=== PATIENT | male | born 1970 | race African-American/Black ===

== ENCOUNTER 2018-07-08 11:09 | Inpatient (IN) | payer OTHER ==
[2018-07-08 13:19] VITALS: BMI 25.8
--- NOTE | 2018-07-08 17:14 | HP ---
CIWA Score - CIWA Score Nausea/Vomitin-Mild Nausea/No Vomiting Muscle Tremors: 2 Anxiety: 3 Agitation: 3 Paroxysmal Sweats: 2 Orientation: 0-Oriented Tacttile Disturbances: 0-None Auditory Disturbances: 0-None Visual Disturbances: 0-None Headache: 3-Moderate CIWA-Ar Total Score: 14 Admission ROS S - HPI Chief Complaint: alcohol withdrawal symptoms Allergies/Adverse Reactions: Allergies Allergy/AdvReac Type Severity Reaction Status Date / Time No Known Allergies Allergy Verified 07/08/18 13:27 History of Present Illness: 47 yo male with history of alcohol, and crack cocaine dependence is here seeking detox. Last detox two months ago at [facility]. Denies any psychiatric problems. Denies suicidal / homicidal ideation or hx of suicide attempt. Longest period of sobriety eight months, during 2009. Exam Limitations: No Limitations - Ebola screening Have you been sick,other than usual withdrawal symptoms: No - Review of Systems Constitutional: Changes in sleep, Weakness EENT: reports: No Symptoms Reported Respiratory: reports: No Symptoms reported Cardiac: reports: No Symptoms Reported GI: reports: Diarrhea, Nausea, Poor Fluid Intake, Indigestion : reports: No Symptoms Reported Musculoskeletal: reports: No Symptoms Reported Integumentary: reports: No Symptoms Reported Neuro: reports: No Symptoms reported Endocrine: reports: Increased Thirst Hematology: reports: No Symptoms Reported Psychiatric: reports: Orientated x3, Depressed Other Systems: Reviewed and Negative Patient History - Patient Medical History Hx Anemia: No Hx Asthma: No Hx Chronic Obstructive Pulmonary Disease (COPD): No Hx Cancer: No Hx Cardiac Disorders: No Hx Congestive Heart Failure: No Hx Hypertension: No Hx Hypercholesterolemia: No Hx Pacemaker: No HX Cerebrovascular Accident: No Hx Seizures: No Hx Dementia: No Hx Diabetes: No Hx Gastrointestinal Disorders: No Hx Liver Disease: No Hx Genitourinary Disorders: No Hx Sexually Transmitted Disorders: No Hx Renal Disease (ESRD): No Hx Thyroid Disease: No Hx Human Immunodeficiency Virus (HIV): No (NEGATIVE HX-07/18) Hx Hepatitis C: No Hx Depression: No Hx Suicide Attempt: No Hx Bipolar Disorder: No Hx Schizophrenia: No - Patient Surgical History Past Surgical History: No Hx Neurologic Surgery: No Hx Cataract Extraction: No Hx Cardiac Surgery: No Hx Lung Surgery: No Hx Breast Surgery: No Hx Breast Biopsy: No Hx Abdominal Surgery: No Hx Appendectomy: No Hx Cholecystectomy: No Hx Genitourinary Surgery: No Hx Section: No Hx Orthopedic Surgery: No Anesthesia Reaction: No - PPD History Previous Implant?: Yes Documented Results: Negative w/proof Implanted On Prior [facility] Admission?: Yes Date: 01/20/16 PPD to be Administered?: Yes - Smoking Cessation Smoking history: Former smoker Have you smoked in the past 12 months: Yes Aproximately how many cigarettes per day: 20 If you are a former smoker, when did you quit?: 2017 Cigars Per Day: 0 Hx Chewing Tobacco Use: No Initiated information on smoking cessation: No - Substance & Tx. History Hx Alcohol Use: Yes Hx Substance Use: Yes Substance Use Type: Alcohol, Cocaine Hx Substance Use Treatment: Yes (Last detox two months ago at [facility]) - Substances Abused Alcohol Route: Oral Frequency: Daily Amount used: 2-3 [place] Age of first use: 15 Date of Last Use: 07/07/18 Cocaine Route: Smoking Frequency: Daily Amount used: $40 Age of first use: 38 Date of Last Use: 07/07/18 Family Disease History - Family Disease History Family History: Denies Admission Physical Exam [facility] - Vital Signs Vital Signs: Vital Signs - 24 hr 07/08/18 07/08/18 13:14 13:16 Temperature 96.9 F L 98.4 F Pulse Rate 69 81 Respiratory 18 20 Rate Blood Pressure 138/82 131/84 - Physical General Appearance: Yes: Appropriately Dressed, Mild Distress, Thin, Sweating, Anxious HEENTM: Yes: EOMI, Hearing grossly Normal, Normal ENT Inspection, Normocephalic , Normal Voice, ELISEO, Pharynx Normal, Tm's normal Respiratory: Yes: Chest Non-Tender, Lungs Clear, Normal Breath Sounds, No Respiratory Distress, No Accessory Muscle Use Neck: Yes: Within Normal Limits Breast: Yes: Breast Exam Deferred Cardiology: Yes: Regular Rhythm, Regular Rate Abdominal: Yes: Normal Bowel Sounds, Non Tender, Flat, Soft Genitourinary: Yes: Within Normal Limits Back: Yes: Normal Inspection Musculoskeletal: Yes: full range of Motion, Gait Steady, Pelvis Stable Extremities: Yes: Normal Capillary Refill, Normal Inspection, Normal Range of Motion, Non-Tender 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, Fully Oriented, Alert, Motor Strength 5/5, Depressed Affect Integumentary: Yes: Normal Color, Warm, Diaphoresis Lymphatic: Yes: Within Normal Limits - Diagnostic (1) Alcohol dependence with uncomplicated withdrawal Current Visit: Yes Status: Acute (2) Cocaine dependence Current Visit: Yes Status: Acute Cleared for Admission [facility] - Detox or Rehab [facility] Level of Care: Medically Managed Detox Regimen/Protocol: Librium [facility] Breath Alcohol Content Breath Alcohol Content: 0 Urine Drug Screen - Results Drug Screen Negative: No Urine Drug Screen Results: NAKUL-Cocaine, BZO-Benzodiazepines
[2018-07-08] MEDS ORDERED: P-EPHED 60MG/TRIPROLIDI 2.5MG TABLET PO PRN (17:22)
[2018-07-08] MEDS ORDERED: MENTHOL/PHENOL 1 EACH UD MM PRN (17:22)
[2018-07-08] MEDS ORDERED: hydrOXYzine PAMOATE 50 MG CAPSULE (FP) PO PRN (17:22)
[2018-07-08] MEDS ORDERED: guaiFENesin/D-METHORPHAN HB 10 ML UNIT-DOSE CUPS PO PRN (17:22)
[2018-07-08] MEDS ORDERED: MAG HYDROX/AL HYDROX/SIMETH 30 ML UNIT-DOSE CUP PO PRN (17:22)
[2018-07-08] MEDS ORDERED: chlordiazePOXIDE HCL 25 MG CAPSULE PO PRN (17:22)
[2018-07-08] MEDS ORDERED: MAGNESIUM CITRATE 300 ML BOTTLE PO PRN (17:22)
[2018-07-08] MEDS ORDERED: MAGNESIUM HYDROX 2400MG/30ML ORAL SUSPENSION 30 ML CUP PO PRN (17:22)
[2018-07-08] MEDS ORDERED: ACETAMINOPHEN 325 MG TABLET (FP) PO PRN (17:22)
[2018-07-08] MEDS ORDERED: IBUPROFEN 400 MG TABLET (FP) PO PRN (17:22)
[2018-07-08] MEDS ORDERED: LOPERAMIDE HCL 2 MG CAPSULE PO PRN (17:22)
[2018-07-08] MEDS ORDERED: chlordiazePOXIDE HCL 25 MG CAPSULE PO ONE (17:45)
[2018-07-08] MEDS ORDERED: MELATONIN 5 MG TABLETS PO PRN (22:00)
[2018-07-08] MEDS ORDERED: THIAMINE HCL 100 MG TABLET (FP) PO SCH (22:00)
[2018-07-08] MEDS: chlordiazePOXIDE HCL 25 MG CAPSULE PO SCH (22:05)
[2018-07-09 00:02] LABS: URINE APPEARANCE CLEAR; URINE BILIRUBIN NEGATIVE (<2.0 mg/dL); URINE COLOR YELLOW; URINE GLUCOSE (UA) NEGATIVE (NEGATIVE); URINE KETONE NEGATIVE (NEGATIVE); URINE LEUK ESTERASE NEGATIVE (NEGATIVE); URINE NITRITE NEGATIVE (NEGATIVE); URINE PROTEIN NEGATIVE (NEGATIVE); URINE UROBILINOGEN NEGATIVE mg/dL (0.2-1.0)
[2018-07-09 00:20] LABS: EPI CELLS RARE /HPF (FEW); URINE HYALINE CAST 2 /lpf; URINE MUCUS MANY
[2018-07-09] MEDS: chlordiazePOXIDE HCL 25 MG CAPSULE PO SCH ×2 (06:42→10:51)
--- NOTE | 2018-07-09 09:59 | EKG ---
Test Reason : Blood Pressure : / mmHG Vent. Rate : 073 BPM Atrial Rate : 073 BPM P-R Int : 150 ms QRS Dur : 082 ms QT Int : 392 ms P-R-T Axes : 065 051 033 degrees QTc Int : 431 ms NORMAL SINUS RHYTHM NONSPECIFIC ST ABNORMALITY NO PREVIOUS ECGS AVAILABLE Confirmed by ANAID NUNEZ MD ([id number]) on 07/09/2018 9:58:46 AM Referred By: Confirmed By:ANAID NUNEZ MD
[2018-07-09] MEDS ORDERED: PRENATAL VITAMINS W/ FOLIC ACID TABLET (FP) PO SCH (10:00)
[2018-07-09 10:01] LABS: HEMATOCRIT 40.6 % (35.4-49); HEMOGLOBIN 13.7 GM/dL (11.7-16.9); MCH 31.8 pg (25.7-33.7); MCHC 33.7 g/dl (32.0-35.9); MEAN CELL VOLUME 94.3 fl (80-96); MEAN PLT VOLUME 10.4 fl (7.5-11.1); PLATELET COUNT 221 K/MM3 (134-434); RBC 4.31 M/mm3 (4.00-5.60); RDW 14.3 % (11.9-15.9); WHITE BLOOD COUNT 5.1 K/mm3 (4.0-10.0)
[2018-07-09 10:21] LABS: ALBUMIN 3.7 g/dl (3.4-5.0); ANION GAP 6 MMOL/L (8-16); BILIRUBIN,TOTAL 0.4 mg/dL (0.2-1.0); BLOOD UREA NITROGEN 21 mg/dL (7-18); CALCIUM 8.8 mg/dL (8.5-10.1); CHLORIDE 105 mmol/L (98-107); CO2 29 mmol/L (21-32); CREATININE 1.1 mg/dL (0.7-1.3); GLUCOSE,RANDOM 132 mg/dL (74-106); POTASSIUM 3.6 mmol/L (3.5-5.1); SGOT/AST 21 U/L (15-37); SGPT/ALT 22 U/L (12-78); SODIUM 140 mmol/L (136-145); TOT PROT 7.7 g/dl (6.4-8.2)
[2018-07-09 10:22] LABS: ALK PHOS 86 U/L (45-117)
[2018-07-09 13:54] VITALS: BP 122/76; PULSE 87; TEMP 96.4
--- NOTE | 2018-07-09 15:30 | DS ---
[facility] Detox Discharge Summary Admission Date: 07/08/18 Discharge Date: 07/09/18 - History Present History: Alcohol Dependence, Cocaine Dependence Additional Comments: PT DECLINED TO CONTINUE WITH DETOX FOR PERSONAL REASONS. ALERT O X 3. - Physical Exam Results Vital Signs: Vital Signs Temperature 96.4 F L 07/09/18 13:53 Pulse Rate 87 07/09/18 13:53 Respiratory Rate 18 07/09/18 13:53 Blood Pressure 122/76 07/09/18 13:53 O2 Sat by Pulse Oximetry (%) Pertinent Admission Physical Exam Findings: WITHDRAWAL SX - Treatment Hospital Course: Discharged Condition Good - Medication Discharge Medications: Ambulatory Orders NK [No Known Home Medication] 09/24/14 - AMA Did Patient Leave Against Medical Advice: Yes (AMA)
--- NOTE | 2018-07-09 16:23 | CONSULT ---
[facility] Psychiatric Consult - Data Date of interview: 07/09/18 Admission source: [facility] Identifying data: Patient refused psychiatric interview.
[2018-07-09] MEDS ORDERED: chlordiazePOXIDE HCL 25 MG CAPSULE PO SCH (23:00)
[2018-07-10] MEDS ORDERED: chlordiazePOXIDE 5 MG CAPSULE PO SCH (23:00)
[2018-07-11] MEDS ORDERED: chlordiazePOXIDE HCL 10 MG CAPSULE PO SCH (23:00)
== END 2018-07-09 15:00 | disposition left against medical advice (07) | DRG 770 ==
LOC: YASAS 11:09 → Y3N 15:35
PROC: HZ2ZZZZ Detoxification Services for Substance Abuse Treatment (ICD-10-PCS; principal; 2018-07-08)
DX: F10.230 Alcohol dependence with withdrawal, uncomplicated (principal); F14.20 Cocaine dependence, uncomplicated; F17.213 Nicotine dependence, cigarettes, with withdrawal
CPT/HCPCS: 36415; 80053; 81003; 81015; 85027; 86593; 93005; 93010

== ENCOUNTER 2018-08-15 12:10 | Inpatient (IN) | payer OTHER ==
[2018-08-15 12:12] VITALS: BMI 25.9
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
[2018-08-15] MEDS ORDERED: MAGNESIUM HYDROX 2400MG/30ML ORAL SUSPENSION 30 ML CUP PO PRN (14:51)
[2018-08-15] MEDS ORDERED: hydrOXYzine PAMOATE 25 MG CAPSULE (FP) PO PRN (14:51)
[2018-08-15] MEDS ORDERED: ACETAMINOPHEN 325 MG TABLET (FP) PO PRN (14:51)
[2018-08-15] MEDS ORDERED: MENTHOL/PHENOL 1 EACH UD MM PRN (14:51)
[2018-08-15] MEDS ORDERED: IBUPROFEN 400 MG TABLET (FP) PO PRN (14:51)
[2018-08-15] MEDS ORDERED: MAG HYDROX/AL HYDROX/SIMETH 30 ML UNIT-DOSE CUP PO PRN (14:51)
[2018-08-15] MEDS ORDERED: P-EPHED 60MG/TRIPROLIDI 2.5MG TABLET PO PRN (14:51)
[2018-08-15] MEDS ORDERED: LOPERAMIDE HCL 2 MG CAPSULE PO PRN (14:51)
[2018-08-15] MEDS ORDERED: chlordiazePOXIDE HCL 25 MG CAPSULE PO PRN (14:51)
[2018-08-15] MEDS ORDERED: guaiFENesin/D-METHORPHAN HB 10 ML UNIT-DOSE CUPS PO PRN (14:51)
[2018-08-15] MEDS ORDERED: MAGNESIUM CITRATE 300 ML BOTTLE PO PRN (14:51)
[2018-08-15] MEDS: chlordiazePOXIDE HCL 25 MG CAPSULE PO SCH ×2 (17:45→22:49)
[2018-08-15] MEDS ORDERED: MELATONIN 5 MG TABLETS PO PRN (22:00)
[2018-08-15] MEDS: THIAMINE HCL 100 MG TABLET (FP) PO SCH (22:48)
[2018-08-15] MEDS: BACITRACIN 0.9 GM PACKET TP SCH (22:48)
[2018-08-15 22:49] LABS: URINE APPEARANCE SLCLOUDY; URINE BILIRUBIN NEGATIVE (<2.0 mg/dL); URINE COLOR YELLOW; URINE GLUCOSE (UA) NEGATIVE (NEGATIVE); URINE KETONE NEGATIVE (NEGATIVE); URINE LEUK ESTERASE NEGATIVE (NEGATIVE); URINE NITRITE NEGATIVE (NEGATIVE); URINE PROTEIN NEGATIVE (NEGATIVE); URINE UROBILINOGEN NEGATIVE mg/dL (0.2-1.0)
[2018-08-15 22:58] LABS: CALCIUM OXALATE CRYSTALS MODERATE /hpf (NONE SEEN); EPI CELLS RARE /HPF (FEW); URINE MUCUS RARE
[2018-08-16] MEDS: chlordiazePOXIDE HCL 25 MG CAPSULE PO SCH ×4 (06:14→23:55)
[2018-08-16] MEDS ORDERED: PRENATAL VITAMINS W/ FOLIC ACID TABLET (FP) PO SCH (10:00)
[2018-08-16 10:20] LABS: HEMATOCRIT 39.1 % (35.4-49); HEMOGLOBIN 12.9 GM/dL (11.7-16.9); MCH 31.4 pg (25.7-33.7); MEAN PLT VOLUME 9.3 fl (7.5-11.1); PLATELET COUNT 218 K/MM3 (134-434); RBC 4.11 M/mm3 (4.00-5.60); RDW 14.1 % (11.9-15.9); WHITE BLOOD COUNT 3.6 K/mm3 (4.0-10.0)
[2018-08-16 10:45] LABS: ALBUMIN 2.9 g/dl (3.4-5.0); ALK PHOS 74 U/L (45-117); ANION GAP 7 MMOL/L (8-16); BILIRUBIN,TOTAL 0.4 mg/dL (0.2-1); BLOOD UREA NITROGEN 12 mg/dL (7-18); CALCIUM 8.9 mg/dL (8.5-10.1); CHLORIDE 109 mmol/L (98-107); CO2 28 mmol/L (21-32); CREATININE 0.9 mg/dL (0.55-1.3); GLUCOSE,RANDOM 91 mg/dL (74-106); POTASSIUM 3.9 mmol/L (3.5-5.1); SGOT/AST 21 U/L (15-37); SGPT/ALT 20 U/L (13-61); SODIUM 144 mmol/L (136-145); TOT PROT 6.2 g/dl (6.4-8.2)
[2018-08-16] MEDS: BACITRACIN 0.9 GM PACKET TP SCH ×2 (10:47→23:55)
--- NOTE | 2018-08-16 12:24 | PN ---
[facility] CIWA - CIWA Score Nausea/Vomitin Muscle Tremors: 4-Moderate,w/Arms Extend Anxiety: 4-Mod. Anxious/Guarded Agitation: 4-Moderately Restless Paroxysmal Sweats: 3 Orientation: 0-Oriented Tacttile Disturbances: 0-None Auditory Disturbances: 0-None Visual Disturbances: 0-None Headache: 0-None Present CIWA-Ar Total Score: 17 BHS Progress Note (SOAP) Subjective: Nausea, fatigue, sweating Objective: 08/16/18 12:21 Last Vital Signs Temp Pulse Resp BP Pulse Ox 97.4 F L 82 17 112/66 08/16/18 09:20 08/16/18 09:20 08/16/18 09:20 08/16/18 09:20 Laboratory Tests 08/15/18 08/16/18 08/16/18 21:00 07:00 07:00 WBC 3.6 L RBC 4.11 Hgb 12.9 Hct 39.1 MCV 95.0 MCH 31.4 MCHC 33.0 RDW 14.1 Plt Count 218 MPV 9.3 D Sodium 144 Potassium 3.9 Chloride 109 H Carbon Dioxide 28 Anion Gap 7 L BUN 12 Creatinine 0.9 Creat Clearance w eGFR > 60 Random Glucose 91 Calcium 8.9 Total Bilirubin 0.4 AST 21 ALT 20 Alkaline Phosphatase 74 Total Protein 6.2 L Albumin 2.9 L Urine Color Yellow Urine Appearance Slcloudy Urine pH 5.0 Ur Specific Stanton 1.031 Urine Protein Negative Urine Glucose (UA) Negative Urine Ketones Negative Urine Blood 1+ H Urine Nitrite Negative Urine Bilirubin Negative Urine Urobilinogen Negative Ur Leukocyte Esterase Negative Urine WBC (Auto) 3 Urine RBC (Auto) 5 Ur Epithelial Cells Rare Calcium Oxalate Crystal Moderate Urine Mucus Rare Labs reviewed: microscopic hematuria/abnormal UA Assessment: 08/16/18 12:22 Withdrawal sxs Noted with microscopic hematuria/abnormal UA Plan: Continue detox Microscopic hematuria/abnormal UA: encouraged PO water intake, repeat UA
[2018-08-16 17:50] VITALS: BP 127/81; PULSE 94; TEMP 97.9
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
[2018-08-16] MEDS: THIAMINE HCL 100 MG TABLET (FP) PO SCH (23:55)
[2018-08-17] MEDS: chlordiazePOXIDE HCL 25 MG CAPSULE PO SCH (06:42)
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
[2018-08-17] MEDS ORDERED: chlordiazePOXIDE 5 MG CAPSULE PO SCH (17:00)
[2018-08-18] MEDS ORDERED: chlordiazePOXIDE HCL 10 MG CAPSULE PO SCH (17:00)
== END 2018-08-16 22:40 | disposition short-term general hospital (02) | DRG 774 ==
LOC: YASAS 12:10 → Y3N 15:21
PROC: HZ2ZZZZ Detoxification Services for Substance Abuse Treatment (ICD-10-PCS; principal; 2018-08-15)
DX: F10.230 Alcohol dependence with withdrawal, uncomplicated (principal); F14.20 Cocaine dependence, uncomplicated; F17.213 Nicotine dependence, cigarettes, with withdrawal; F91.8 Other conduct disorders; F41.9 Anxiety disorder, unspecified; R82.90 Unspecified abnormal findings in urine; R31.29 Other microscopic hematuria; S00.83XA Contusion of other part of head, initial encounter; S01.511A Laceration without foreign body of lip, initial encounter; Y04.0XXA Assault by unarmed brawl or fight, initial encounter; W18.39XA Other fall on same level, initial encounter; Y93.89 Activity, other specified; Y92.239 Unspecified place in hospital as the place of occurrence of the external cause
CPT/HCPCS: 36415; 80053; 81003; 81015; 85027; 86593

== ENCOUNTER 2018-08-16 23:11 | Emergency (ER) | payer OTHER ==
[2018-08-16 23:18] VITALS: BP 137/83; PULSE 89; TEMP 98; BMI 25.8
[2018-08-17] MEDS ORDERED: KETOROLAC TROMETHAMINE 30 MG/1 ML VIAL IVPUSH ONE (03:49)
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
[2018-08-17] MEDS ORDERED: KETOROLAC TROMETHAMINE 15 MG/ML VIAL ONE (05:27)
[2018-08-17] MEDS ORDERED: RANITIDINE HCL 150 MG TABLET (FP) ONE (05:41)
[2018-08-17] MEDS ORDERED: ONDANSETRON *ODT* 4 MG TABLET ONE (05:42)
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
--- NOTE | 2018-08-17 07:27 | DS ---
S Detox Discharge Summary Discharge Date: 08/17/18 - History Additional Comments: Patie - Physical Exam Results Vital Signs: Vital Signs Temperature 98.0 F 08/16/18 23:16 Pulse Rate 89 08/16/18 23:16 Respiratory Rate 18 08/16/18 23:16 Blood Pressure 137/83 08/16/18 23:16 O2 Sat by Pulse Oximetry (%) 99 08/16/18 23:16 - Medication Discharge Medications: Ambulatory Orders NK [No Known Home Medication] 09/24/14
== END 2018-08-17 07:45 | disposition home or self-care (01) ==
LOC: JER 23:11
PROC: 3E0333Z Introduction of Anti-inflammatory into Peripheral Vein, Percutaneous Approach (ICD-10-PCS; principal; 2018-08-16)
DX: S09.93XA Unspecified injury of face, initial encounter (principal); S01.511A Laceration without foreign body of lip, initial encounter; R07.81 Pleurodynia; Y04.0XXA Assault by unarmed brawl or fight, initial encounter; Y93.89 Activity, other specified; Y92.238 Other place in hospital as the place of occurrence of the external cause; Y99.8 Other external cause status
CPT/HCPCS: 96374; 99282-25

== ENCOUNTER 2019-02-17 12:49 | Inpatient (IN) | payer OTHER ==
[2019-02-17 13:55] VITALS: BMI 25.8
--- NOTE | 2019-02-17 14:12 | HP ---
CIWA Score Nausea/Vomitin Muscle Tremors: 2 Anxiety: 2 Agitation: 2 Paroxysmal Sweats: 1-Minimal Palms Moist Orientation: 0-Oriented Tacttile Disturbances: 1-Very Mild Itch/Numbness Auditory Disturbances: 1-Very Mild Visual Disturbances: 0-None Headache: 2-Mild CIWA-Ar Total Score: 13 - Admission Criteria OASAS Guidelines: Admission for Medically Managed Detox: Requires at least one of the followin. CIWA greater than 12 2. Seizures within the past 24 hours 3. Delirium tremens within the past 24 hours 4. Hallucinations within the past 24 hours 5. Acute intervention needed for co occurring medical disorder 6. Acute intervention needed for co occurring psychiatric disorder 7. Severe withdrawal that cannot be handled at a lower level of care (continued vomiting, continued diarrhea, abnormal vital signs) requiring intravenous medication and/or fluids 8. Admission ROS BHS - HPI Chief Complaint: i need help to stop dronking alcohol and cocaine Allergies/Adverse Reactions: Allergies Allergy/AdvReac Type Severity Reaction Status Date / Time No Known Allergies Allergy Verified 02/17/19 13:51 History of Present Illness: this 48 years old male with alcohol and cocaine dependence,seeking detox, withdrawal symptom, multiple admissions in detox,last [facility] 08/15/18 to 08/16/18 not completed syncope alcohol related nicotine dependence 6 cigarette,do not want nicotine replacement weight loss longest period of sobriety 6 months plan for rehab after detox Exam Limitations: No Limitations - Ebola screening Have you traveled outside of the country in the last 21 days: No Have you had contact with anyone from an Ebola affected area: No Do you have a fever: No - Review of Systems Constitutional: Loss of Appetite, Malaise, Night Sweats, Changes in sleep, Unintentional Wgt. Loss EENT: reports: Tearing, Nose Congestion Respiratory: reports: No Symptoms reported Cardiac: reports: No Symptoms Reported GI: reports: Nausea, Vomiting, Abdominal cramping : reports: No Symptoms Reported Musculoskeletal: reports: Back Pain, Muscle Pain Integumentary: reports: Dryness Neuro: reports: Headache, Tremors Endocrine: reports: No Symptoms Reported Hematology: reports: No Symptoms Reported Psychiatric: reports: No Sypmtoms Reported, Judgement Intact, Mood/Affect Appropiate, Orientated x3 Other Systems: Reviewed and Negative Patient History - Patient Medical History Hx Anemia: No Hx Asthma: No Hx Chronic Obstructive Pulmonary Disease (COPD): No Hx Cancer: No Hx Cardiac Disorders: No Hx Congestive Heart Failure: No Hx Hypertension: No Hx Hypercholesterolemia: No Hx Pacemaker: No HX Cerebrovascular Accident: No Hx Seizures: No Hx Dementia: No Hx Diabetes: No Hx Gastrointestinal Disorders: No Hx Liver Disease: No Hx Genitourinary Disorders: No Hx Sexually Transmitted Disorders: No Hx Renal Disease (ESRD): No Hx Thyroid Disease: No Hx Human Immunodeficiency Virus (HIV): No (02/17 negative) Hx Hepatitis C: No Hx Depression: No Hx Suicide Attempt: No Hx Bipolar Disorder: No Hx Schizophrenia: No Other Medical History: no suicidal,no homicidal - Patient Surgical History Past Surgical History: No Hx Neurologic Surgery: No Hx Cataract Extraction: No Hx Cardiac Surgery: No Hx Lung Surgery: No Hx Breast Surgery: No Hx Breast Biopsy: No Hx Abdominal Surgery: No Hx Appendectomy: No Hx Cholecystectomy: No Hx Genitourinary Surgery: No Hx Section: No Hx Orthopedic Surgery: No Anesthesia Reaction: No - PPD History Previous Implant?: Yes Documented Results: Negative w/proof Implanted On Prior [facility] Admission?: Yes Date: 07/10/18 Results: 0 mm PPD to be Administered?: No - Smoking Cessation Smoking history: Current every day smoker Have you smoked in the past 12 months: Yes Aproximately how many cigarettes per day: 5 Cigars Per Day: 0 Hx Chewing Tobacco Use: No Initiated information on smoking cessation: Yes 'Breaking Loose' booklet given: 02/17/19 - Substance & Tx. History Hx Alcohol Use: Yes Hx Substance Use: No Substance Use Type: Alcohol, Cocaine Hx Substance Use Treatment: Yes ([facility] 08/15/18 to 08/16/18 not completed) - Substances abused Alcohol Substance route: Oral Frequency: Daily Amount used: 3 PT. VODKA, 6 beers ( 25 oz ) Age of first use: 15 Date of last use: 02/17/19 Cocaine Substance route: Smoking Frequency: Daily Amount used: 50$ Age of first use: 35 Date of last use: 02/17/19 Family Disease History - Family Disease History Family History: Denies Admission Physical Exam BHS - Vital Signs Vital Signs: Vital Signs - 24 hr 02/17/19 13:45 Temperature 98 F Pulse Rate 70 Respiratory 18 Rate Blood Pressure 135/90 - Physical General Appearance: Yes: Moderate Distress, Tremorous, Irritable, Sweating, Anxious HEENTM: Yes: Normal ENT Inspection, ELISEO, Pharynx Normal Respiratory: Yes: Lungs Clear, Normal Breath Sounds, No Respiratory Distress Neck: Yes: Within Normal Limits, Supple, Trachea in good position Breast: Yes: Within Normal Limits Cardiology: Yes: Within Normal Limits, Regular Rhythm, Regular Rate, S1, S2 Abdominal: Yes: Within Normal Limits, Normal Bowel Sounds, Non Tender, Flat, Soft Genitourinary: Yes: Within Normal Limits Back: Yes: Muscle Spasm Musculoskeletal: Yes: Back pain, Muscle Pain Extremities: Yes: Tremors 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, Fully Oriented, Alert, Motor Strength 5/5 Integumentary: Yes: Dry Lymphatic: Yes: Within Normal Limits - Diagnostic (1) Alcohol dependence with uncomplicated withdrawal Current Visit: No Status: Chronic (2) Nicotine dependence Current Visit: No Status: Acute Qualifiers: Nicotine product type: cigarettes Substance use status: in withdrawal Qualified Code(s): F17.213 - Nicotine dependence, cigarettes, with withdrawal (3) Syncope Current Visit: No Status: Acute (4) Cocaine dependence Current Visit: No Status: Chronic (5) Weight loss Current Visit: Yes Status: Acute Cleared for Admission S - Detox or Rehab S Level of Care: Medically Managed Detox Regimen/Protocol: Librium Inpatient Rehab Admission - Rehab Decision to Admit Inpatient rehab admission?: No
[2019-02-17] MEDS ORDERED: ACETAMINOPHEN 325 MG TABLET (FP) PO PRN ×2 (14:18)
[2019-02-17] MEDS ORDERED: MAGNESIUM HYDROX 2400MG/30ML ORAL SUSPENSION 30 ML CUP PO PRN (14:18)
[2019-02-17] MEDS ORDERED: MELATONIN 5 MG TABLETS PO PRN (14:18)
[2019-02-17] MEDS ORDERED: MAG HYDROX/AL HYDROX/SIMETH 30 ML UNIT-DOSE CUP PO PRN (14:18)
[2019-02-17] MEDS ORDERED: MAGNESIUM CITRATE 300 ML BOTTLE PO PRN (14:18)
[2019-02-17] MEDS ORDERED: hydrOXYzine PAMOATE 25 MG CAPSULE (FP) PO PRN (14:18)
[2019-02-17] MEDS ORDERED: MENTHOL/PHENOL 1 EACH UD MM PRN (14:18)
[2019-02-17] MEDS ORDERED: BISMUTH SUBSALICYLATE 262 MG/15 ML BTL PO PRN (14:18)
[2019-02-17] MEDS ORDERED: chlordiazePOXIDE HCL 25 MG CAPSULE PO PRN (14:18)
[2019-02-17] MEDS ORDERED: METHOCARBAMOL 500 MG TABLET PO PRN (14:18)
[2019-02-17] MEDS ORDERED: IBUPROFEN 400 MG TABLET (FP) PO PRN (14:18)
[2019-02-17 16:34] LABS: HEMATOCRIT 40.6 % (35.4-49); MCH 32.9 pg (25.7-33.7); MCHC 34.5 g/dl (32.0-35.9); MEAN CELL VOLUME 95.4 fl (80-96); MEAN PLT VOLUME 9.4 fl (7.5-11.1); PLATELET COUNT 232 K/MM3 (134-434); RBC 4.26 M/mm3 (4.00-5.60); RDW 14.2 % (11.9-15.9); WHITE BLOOD COUNT 5.8 K/mm3 (4.0-10.0)
[2019-02-17 16:49] LABS: ALBUMIN 3.8 g/dl (3.4-5.0); ALK PHOS 119 U/L (45-117); ANION GAP 7 MMOL/L (8-16); BILIRUBIN,TOTAL 0.2 mg/dL (0.2-1); BLOOD UREA NITROGEN 8 mg/dL (7-18); CALCIUM 8.6 mg/dL (8.5-10.1); CHLORIDE 105 mmol/L (98-107); CO2 29 mmol/L (21-32); GLUCOSE,RANDOM 124 mg/dL (74-106); POTASSIUM 3.3 mmol/L (3.5-5.1); SGOT/AST 32 U/L (15-37); SGPT/ALT 30 U/L (13-61); SODIUM 141 mmol/L (136-145); TOT PROT 7.7 g/dl (6.4-8.2)
[2019-02-17 17:21] LABS: EPI CELLS 1.3 /HPF (0-5/HPF); PH,URINE 5.5 (5.0-8.0); URINE APPEARANCE CLEAR; URINE BACTERIA 2.2 /hpf (NEGATIVE); URINE BILIRUBIN NEGATIVE (NEGATIVE); URINE CASTS 2 /lpf (0-8); URINE COLOR YELLOW; URINE GLUCOSE (UA) NEGATIVE (NEGATIVE); URINE KETONE NEGATIVE (NEGATIVE); URINE LEUK ESTERASE NEGATIVE (NEGATIVE); URINE NITRITE NEGATIVE (NEGATIVE); URINE PROTEIN NEGATIVE (NEGATIVE); URINE RBC 4 /hpf (0-4); URINE UROBILINOGEN 0.2 mg/dL (0.2-1.0); URINE WBC 2 /hpf (0-5)
[2019-02-17] MEDS: chlordiazePOXIDE HCL 25 MG CAPSULE PO SCH ×2 (18:14→23:52)
[2019-02-17] MEDS: THIAMINE HCL 100 MG TABLET (FP) PO SCH (23:52)
[2019-02-18] MEDS: chlordiazePOXIDE HCL 25 MG CAPSULE PO SCH ×4 (06:11→23:01)
--- NOTE | 2019-02-18 07:10 | PN ---
S Progress Note Note: Patient's blood pressure was B/P 153/119. Vital Signs Temperature 97.7 F 02/18/19 06:00 Pulse Rate 82 02/18/19 06:00 Respiratory Rate 18 02/18/19 06:00 Blood Pressure 153/119 H 02/18/19 06:00 O2 Sat by Pulse Oximetry (%) Action: Clonidine 0.1mg tablet oral ordered
[2019-02-18] MEDS ORDERED: cloNIDine HCL 0.1 MG TABLET PO ONE (08:15)
[2019-02-18] MEDS: PRENATAL VITAMINS W/ FOLIC ACID TABLET (FP) PO SCH (10:42)
--- NOTE | 2019-02-18 11:44 | PN ---
S CIWA - CIWA Score Nausea/Vomitin-No Nausea/No Vomiting Muscle Tremors: None Anxiety: 0-No Anxiety, at Ease Agitation: 0-Normal Activity Paroxysmal Sweats: No Perspiration Orientation: 0-Oriented Tacttile Disturbances: 0-None Auditory Disturbances: 0-None Visual Disturbances: 0-None Headache: 0-None Present CIWA-Ar Total Score: 0 BHS Progress Note (SOAP) Subjective: pt states she is doing well on the alcohol detox protocol O: Vital Signs - 24 hr 02/17/19 02/17/19 02/17/19 13:45 16:00 17:11 Temperature 98 F 98.1 F 98.1 F Pulse Rate 70 79 87 Respiratory 18 18 18 Rate Blood Pressure 135/90 129/87 121/70 02/17/19 02/18/19 02/18/19 21:23 00:30 03:30 Temperature 98.2 F Pulse Rate 87 Respiratory 18 18 18 Rate Blood Pressure 128/83 02/18/19 06:00 Temperature 97.7 F Pulse Rate 82 Respiratory 18 Rate Blood Pressure 153/119 H Laboratory Tests 02/17/19 02/17/19 02/17/19 13:35 14:20 14:20 WBC 5.8 RBC 4.26 Hgb 14.0 Hct 40.6 MCV 95.4 MCH 32.9 MCHC 34.5 RDW 14.2 Plt Count 232 MPV 9.4 Sodium 141 Potassium 3.3 L Chloride 105 Carbon Dioxide 29 Anion Gap 7 L BUN 8 Creatinine 1.0 Creat Clearance w eGFR 80.44 Random Glucose 124 H Calcium 8.6 Total Bilirubin 0.2 AST 32 ALT 30 Alkaline Phosphatase 119 H Total Protein 7.7 Albumin 3.8 Urine Color Yellow Urine Appearance Clear Urine pH 5.5 Ur Specific [place] 1.015 Urine Protein Negative Urine Glucose (UA) Negative Urine Ketones Negative Urine Blood 2+ H Urine Nitrite Negative Urine Bilirubin Negative Urine Urobilinogen 0.2 Ur Leukocyte Esterase Negative Urine WBC (Auto) 2 Urine RBC (Auto) 4 Urine Casts (Auto) 2 U Epithel Cells (Auto) 1.3 Urine Bacteria (Auto) 2.2 RPR Titer 02/17/19 14:20 WBC RBC Hgb Hct MCV MCH MCHC RDW Plt Count MPV Sodium Potassium Chloride Carbon Dioxide Anion Gap BUN Creatinine Creat Clearance w eGFR Random Glucose Calcium Total Bilirubin AST ALT Alkaline Phosphatase Total Protein Albumin Urine Color Urine Appearance Urine pH Ur Specific [place] Urine Protein Urine Glucose (UA) Urine Ketones Urine Blood Urine Nitrite Urine Bilirubin Urine Urobilinogen Ur Leukocyte Esterase Urine WBC (Auto) Urine RBC (Auto) Urine Casts (Auto) U Epithel Cells (Auto) Urine Bacteria (Auto) RPR Titer Nonreactive high BP decreased GFR, low K a/p: continue alcohol detox protocol- pt doing well, Potassium replacement repeat K
[2019-02-18] MEDS: POTASSIUM CHLORIDE ORAL LIQUID 20 MEQ/15 ML PO SCH (23:01)
[2019-02-18] MEDS: THIAMINE HCL 100 MG TABLET (FP) PO SCH (23:01)
[2019-02-19] MEDS: chlordiazePOXIDE HCL 25 MG CAPSULE PO SCH ×2 (07:11→10:46)
[2019-02-19 09:39] VITALS: BP 112/52; PULSE 76; TEMP 98.4
[2019-02-19] MEDS: PRENATAL VITAMINS W/ FOLIC ACID TABLET (FP) PO SCH (10:46)
[2019-02-19] MEDS: POTASSIUM CHLORIDE ORAL LIQUID 20 MEQ/15 ML PO SCH (10:46)
--- NOTE | 2019-02-19 12:43 | PN ---
S CIWA - CIWA Score Nausea/Vomitin-No Nausea/No Vomiting Muscle Tremors: 1-None Visible, but [place] Anxiety: 1-Mildly Anxious Agitation: 0-Normal Activity Paroxysmal Sweats: 4-Forehead w/Sweat Beads Orientation: 0-Oriented Tacttile Disturbances: 0-None Auditory Disturbances: 0-None Visual Disturbances: 0-None Headache: 1-Very Mild CIWA-Ar Total Score: 7 BHS Progress Note (SOAP) Subjective: night sweats interrupted sleep mild headache Objective: 02/19/19 12:46 Vital Signs 02/19/19 02/19/19 06:00 09:39 Temperature 97.7 F 98.4 F Pulse Rate 73 76 Respiratory 18 18 Rate Blood Pressure 133/77 112/52 L Laboratory Last Values WBC 5.8 K/mm3 (4.0-10.0) 02/17/19 14:20 RBC 4.26 M/mm3 (4.00-5.60) 02/17/19 14:20 Hgb 14.0 GM/dL (11.7-16.9) 02/17/19 14:20 Hct 40.6 % (35.4-49) 02/17/19 14:20 MCV 95.4 fl (80-96) 02/17/19 14:20 MCH 32.9 pg (25.7-33.7) 02/17/19 14:20 MCHC 34.5 g/dl (32.0-35.9) 02/17/19 14:20 RDW 14.2 % (11.9-15.9) 02/17/19 14:20 Plt Count 232 K/MM3 (134-434) 02/17/19 14:20 MPV 9.4 fl (7.5-11.1) 02/17/19 14:20 Sodium 141 mmol/L (136-145) 02/17/19 14:20 Potassium 3.3 mmol/L (3.5-5.1) L 02/17/19 14:20 Chloride 105 mmol/L (98-107) 02/17/19 14:20 Carbon Dioxide 29 mmol/L (21-32) 02/17/19 14:20 Anion Gap 7 MMOL/L (8-16) L 02/17/19 14:20 BUN 8 mg/dL (7-18) 02/17/19 14:20 Creatinine 1.0 mg/dL (0.55-1.3) 02/17/19 14:20 Creat Clearance w eGFR 80.44 (>60) 02/17/19 14:20 Random Glucose 124 mg/dL (74-106) H 02/17/19 14:20 Calcium 8.6 mg/dL (8.5-10.1) 02/17/19 14:20 Total Bilirubin 0.2 mg/dL (0.2-1) 02/17/19 14:20 AST 32 U/L (15-37) 02/17/19 14:20 ALT 30 U/L (13-61) 02/17/19 14:20 Alkaline Phosphatase 119 U/L (45-117) H 02/17/19 14:20 Total Protein 7.7 g/dl (6.4-8.2) 02/17/19 14:20 Albumin 3.8 g/dl (3.4-5.0) 02/17/19 14:20 Urine Color Yellow 02/17/19 13:35 Urine Appearance Clear 02/17/19 13:35 Urine pH 5.5 (5.0-8.0) 02/17/19 13:35 Ur Specific [place] 1.015 (1.010-1.035) 02/17/19 13:35 Urine Protein Negative (NEGATIVE) 02/17/19 13:35 Urine Glucose (UA) Negative (NEGATIVE) 02/17/19 13:35 Urine Ketones Negative (NEGATIVE) 02/17/19 13:35 Urine Blood 2+ (NEGATIVE) H 02/17/19 13:35 Urine Nitrite Negative (NEGATIVE) 02/17/19 13:35 Urine Bilirubin Negative (NEGATIVE) 02/17/19 13:35 Urine Urobilinogen 0.2 mg/dL (0.2-1.0) 02/17/19 13:35 Ur Leukocyte Esterase Negative (NEGATIVE) 02/17/19 13:35 Urine WBC (Auto) 2 /hpf (0-5) 02/17/19 13:35 Urine RBC (Auto) 4 /hpf (0-4) 02/17/19 13:35 Urine Casts (Auto) 2 /lpf (0-8) 02/17/19 13:35 U Epithel Cells (Auto) 1.3 /HPF (0-5/HPF) 02/17/19 13:35 Urine Bacteria (Auto) 2.2 /hpf (NEGATIVE) 02/17/19 13:35 RPR Titer Nonreactive (NONREACTIVE) 02/17/19 14:20 Labs reviewed Assessment: 02/19/19 12:48 AOX3, in no respiratory distress, EENT:WNL full ROM mild withdrawal symptoms Plan: continue detox increase fluids continue to monitor.
--- NOTE | 2019-02-19 14:03 | DS ---
[facility] Detox Discharge Summary Admission Date: 02/17/19 Discharge Date: 02/19/19 - History Present History: Alcohol Dependence, Cocaine Dependence Additional Comments: Pt left against medical advice, states he has to go and do something personal. Detox protocol not completed. Withdrawal signs persists. Pt is instructed to visit any Emergency room for any withdrawal symptoms. Pertinent Past History: alcohol and cocaine dependence - Physical Exam Results Vital Signs: Vital Signs Temperature 98.4 F 02/19/19 09:39 Pulse Rate 76 02/19/19 09:39 Respiratory Rate 18 02/19/19 09:39 Blood Pressure 112/52 L 02/19/19 09:39 O2 Sat by Pulse Oximetry (%) Laboratory Last Values WBC 5.8 K/mm3 (4.0-10.0) 02/17/19 14:20 RBC 4.26 M/mm3 (4.00-5.60) 02/17/19 14:20 Hgb 14.0 GM/dL (11.7-16.9) 02/17/19 14:20 Hct 40.6 % (35.4-49) 02/17/19 14:20 MCV 95.4 fl (80-96) 02/17/19 14:20 MCH 32.9 pg (25.7-33.7) 02/17/19 14:20 MCHC 34.5 g/dl (32.0-35.9) 02/17/19 14:20 RDW 14.2 % (11.9-15.9) 02/17/19 14:20 Plt Count 232 K/MM3 (134-434) 02/17/19 14:20 MPV 9.4 fl (7.5-11.1) 02/17/19 14:20 Sodium 141 mmol/L (136-145) 02/17/19 14:20 Potassium 3.3 mmol/L (3.5-5.1) L 02/17/19 14:20 Chloride 105 mmol/L (98-107) 02/17/19 14:20 Carbon Dioxide 29 mmol/L (21-32) 02/17/19 14:20 Anion Gap 7 MMOL/L (8-16) L 02/17/19 14:20 BUN 8 mg/dL (7-18) 02/17/19 14:20 Creatinine 1.0 mg/dL (0.55-1.3) 02/17/19 14:20 Creat Clearance w eGFR 80.44 (>60) 02/17/19 14:20 Random Glucose 124 mg/dL (74-106) H 02/17/19 14:20 Calcium 8.6 mg/dL (8.5-10.1) 02/17/19 14:20 Total Bilirubin 0.2 mg/dL (0.2-1) 02/17/19 14:20 AST 32 U/L (15-37) 02/17/19 14:20 ALT 30 U/L (13-61) 02/17/19 14:20 Alkaline Phosphatase 119 U/L (45-117) H 02/17/19 14:20 Total Protein 7.7 g/dl (6.4-8.2) 02/17/19 14:20 Albumin 3.8 g/dl (3.4-5.0) 02/17/19 14:20 Urine Color Yellow 02/17/19 13:35 Urine Appearance Clear 02/17/19 13:35 Urine pH 5.5 (5.0-8.0) 02/17/19 13:35 Ur Specific [place] 1.015 (1.010-1.035) 02/17/19 13:35 Urine Protein Negative (NEGATIVE) 02/17/19 13:35 Urine Glucose (UA) Negative (NEGATIVE) 02/17/19 13:35 Urine Ketones Negative (NEGATIVE) 02/17/19 13:35 Urine Blood 2+ (NEGATIVE) H 02/17/19 13:35 Urine Nitrite Negative (NEGATIVE) 02/17/19 13:35 Urine Bilirubin Negative (NEGATIVE) 02/17/19 13:35 Urine Urobilinogen 0.2 mg/dL (0.2-1.0) 02/17/19 13:35 Ur Leukocyte Esterase Negative (NEGATIVE) 02/17/19 13:35 Urine WBC (Auto) 2 /hpf (0-5) 02/17/19 13:35 Urine RBC (Auto) 4 /hpf (0-4) 02/17/19 13:35 Urine Casts (Auto) 2 /lpf (0-8) 02/17/19 13:35 U Epithel Cells (Auto) 1.3 /HPF (0-5/HPF) 02/17/19 13:35 Urine Bacteria (Auto) 2.2 /hpf (NEGATIVE) 02/17/19 13:35 RPR Titer Nonreactive (NONREACTIVE) 02/17/19 14:20 Labs reviewed. Pt refused lab draw this morning. Encouraged to follow-up with PMD for repeat of K+ level Pertinent Admission Physical Exam Findings: withdrawal symptoms - Treatment Hospital Course: Detoxed Safely - Medication Discharge Medications: Ambulatory Orders NK [No Known Home Medication] 09/24/14 - Diagnosis (1) Alcohol dependence with uncomplicated withdrawal Current Visit: Yes Status: Acute (2) Anxiety Current Visit: Yes Status: Chronic (3) Cocaine dependence Current Visit: Yes Status: Acute - AMA Did Patient Leave Against Medical Advice: Yes (Pt states, "i have to go and do something personal.)
[2019-02-19] MEDS ORDERED: chlordiazePOXIDE HCL 10 MG CAPSULE PO SCH (17:00)
[2019-02-19] MEDS ORDERED: chlordiazePOXIDE HCL 10 MG CAPSULE PO PRN (17:00)
[2019-02-20] MEDS ORDERED: chlordiazePOXIDE HCL 10 MG CAPSULE PO SCH (17:00)
== END 2019-02-19 14:29 | disposition left against medical advice (07) | DRG 770 ==
LOC: YASAS 12:49 → Y6N 14:49
PROVIDERS: ADMIT Surgery; ATTEND Surgery
PROC: HZ2ZZZZ Detoxification Services for Substance Abuse Treatment (ICD-10-PCS; principal; 2019-02-17)
DX: F10.230 Alcohol dependence with withdrawal, uncomplicated (principal); F14.20 Cocaine dependence, uncomplicated; F17.213 Nicotine dependence, cigarettes, with withdrawal; F41.9 Anxiety disorder, unspecified; R63.4 Abnormal weight loss
CPT/HCPCS: 36415; 80053; 81003; 85027; 86593; J0735

== ENCOUNTER 2019-03-31 08:17 | Inpatient (IN) | payer OTHER ==
[2019-03-31 09:03] VITALS: BMI 24.3
--- NOTE | 2019-03-31 09:47 | HP ---
CIWA Score Nausea/Vomitin-No Nausea/No Vomiting Muscle Tremors: None Anxiety: 4-Mod. Anxious/Guarded Agitation: 0-Normal Activity Paroxysmal Sweats: 3 Orientation: 3-Disoriented Date>2 days Tacttile Disturbances: 0-None Auditory Disturbances: 2-Mild Harshness/Frighten Visual Disturbances: 2-Mild Sensitivity Headache: 2-Mild CIWA-Ar Total Score: 16 - Admission Criteria OASAS Guidelines: Admission for Medically Managed Detox: Requires at least one of the followin. CIWA greater than 12 2. Seizures within the past 24 hours 3. Delirium tremens within the past 24 hours 4. Hallucinations within the past 24 hours 5. Acute intervention needed for co occurring medical disorder 6. Acute intervention needed for co occurring psychiatric disorder 7. Severe withdrawal that cannot be handled at a lower level of care (continued vomiting, continued diarrhea, abnormal vital signs) requiring intravenous medication and/or fluids 8. Admission ROS S - HPI Allergies/Adverse Reactions: Allergies Allergy/AdvReac Type Severity Reaction Status Date / Time No Known Allergies Allergy Verified 03/31/19 09:11 History of Present Illness: pt here requesting detox from etoh use , reprots 3-4 pints vodka/ day x 3-4 years , prior detox at this facility January 2019 , relapsed after d/c , current symptoms as above, latest use 3 am today , reports tremors, blackouts , denies seizures , starts drinking around 9 am . PMHX / PSHX : denies . Psych : denies , denies current SI / HI . tobacco : occasional cocaine : 30-40$ /day denies IVDU Exam Limitations: Clinical Condition, Intoxication - Ebola screening Have you traveled outside of the country in the last 21 days: No (N) Have you had contact with anyone from an Ebola affected area: No Do you have a fever: No - Review of Systems Constitutional: See HPI EENT: reports: No Symptoms Reported Respiratory: reports: No Symptoms reported Cardiac: reports: No Symptoms Reported GI: reports: No Symptoms Reported : reports: No Symptoms Reported Musculoskeletal: reports: No Symptoms Reported Integumentary: reports: Pruritus Neuro: reports: See HPI Endocrine: reports: No Symptoms Reported Psychiatric: reports: Disorientated Patient History - Patient Medical History Hx Anemia: No Hx Asthma: No Hx Chronic Obstructive Pulmonary Disease (COPD): No Hx Cancer: No Hx Cardiac Disorders: No Hx Congestive Heart Failure: No Hx Hypertension: No Hx Hypercholesterolemia: No Hx Pacemaker: No HX Cerebrovascular Accident: No Hx Seizures: No Hx Dementia: No Hx Diabetes: No Hx Gastrointestinal Disorders: No Hx Liver Disease: No Hx Genitourinary Disorders: No Hx Sexually Transmitted Disorders: No Hx Renal Disease (ESRD): No Hx Thyroid Disease: No Hx Human Immunodeficiency Virus (HIV): No (02/17 negative) Hx Hepatitis C: No Hx Depression: No Hx Suicide Attempt: No Hx Bipolar Disorder: No Hx Schizophrenia: No - Patient Surgical History Past Surgical History: No Hx Neurologic Surgery: No Hx Cataract Extraction: No Hx Cardiac Surgery: No Hx Lung Surgery: No Hx Breast Surgery: No Hx Breast Biopsy: No Hx Abdominal Surgery: No Hx Appendectomy: No Hx Cholecystectomy: No Hx Genitourinary Surgery: No Hx Section: No Hx Orthopedic Surgery: No Anesthesia Reaction: No - PPD History Date: 07/10/18 Results: 0 mm - Smoking Cessation Smoking history: Current every day smoker Have you smoked in the past 12 months: Yes Aproximately how many cigarettes per day: 5 If you are a former smoker, when did you quit?: 2017 Cigars Per Day: 0 Hx Chewing Tobacco Use: No Initiated information on smoking cessation: No - Substances abused Alcohol Substance route: Oral Frequency: Daily Amount used: 5 PT. VODKA, 6 beers ( 25 oz ) Age of first use: 15 Date of last use: 03/30/19 Cocaine Substance route: Smoking Frequency: Daily Amount used: $40 Age of first use: 38 Date of last use: 03/31/19 Family Disease History - Family Disease History Family History: Unable to Obtain (pt fatigued , falls asleep frequently during interview) Admission Physical Exam S - Vital Signs Vital Signs: Vital Signs - 24 hr 03/31/19 08:53 Temperature 97.7 F Pulse Rate 92 H Respiratory 18 Rate Blood Pressure 137/81 - Physical General Appearance: Yes: Disheveled, Mild Distress, Intoxicated HEENTM: Yes: EOMI, Hearing grossly Normal, Normocephalic, Normal Voice Respiratory: Yes: Chest Non-Tender, Lungs Clear, Normal Breath Sounds, No Respiratory Distress, No Accessory Muscle Use Neck: Yes: No masses,lesions,Nodules, Trachea in good position Cardiology: Yes: Regular Rhythm, Regular Rate, S1, S2, Tachycardia Abdominal: Yes: Non Tender, Soft Back: Yes: Normal Inspection Extremities: Yes: Normal Range of Motion, Non-Tender, Tremors Neurological: Yes: Motor Strength 5/5, Disoriented Integumentary: Yes: Warm - Diagnostic (1) Alcohol dependence Current Visit: Yes Status: Acute (2) Cocaine dependence Current Visit: Yes Status: Chronic (3) Alcohol intoxication Current Visit: Yes Status: Acute Qualifiers: Complication of substance-induced condition: uncomplicated Qualified Code(s ): F10.920 - Alcohol use, unspecified with intoxication, uncomplicated Breathalyzer - Breathalyzer Breathalyzer: 0.032 Urine Drug Screen - Test Device Lot number: [id number] Expiration date: 12/30/20 - Control Is test valid?: Yes - Results Drug screen NEGATIVE: No Urine drug screen results: NAKUL-Cocaine Inpatient Rehab Admission - Rehab Decision to Admit Inpatient rehab admission?: No
[2019-03-31] MEDS ORDERED: MAGNESIUM CITRATE 300 ML BOTTLE PO PRN (09:52)
[2019-03-31] MEDS ORDERED: BISMUTH SUBSALICYLATE 262 MG/15 ML BTL PO PRN (09:52)
[2019-03-31] MEDS ORDERED: hydrOXYzine PAMOATE 25 MG CAPSULE (FP) PO PRN (09:52)
[2019-03-31] MEDS ORDERED: IBUPROFEN 400 MG TABLET (FP) PO PRN (09:52)
[2019-03-31] MEDS ORDERED: MAGNESIUM HYDROX 2400MG/30ML ORAL SUSPENSION 30 ML CUP PO PRN (09:52)
[2019-03-31] MEDS ORDERED: MELATONIN 5 MG TABLETS PO PRN (09:52)
[2019-03-31] MEDS ORDERED: MENTHOL/PHENOL 1 EACH UD MM PRN (09:52)
[2019-03-31] MEDS ORDERED: chlordiazePOXIDE HCL 25 MG CAPSULE PO PRN (09:52)
[2019-03-31] MEDS ORDERED: MAG HYDROX/AL HYDROX/SIMETH 30 ML UNIT-DOSE CUP PO PRN (09:52)
[2019-03-31] MEDS ORDERED: ACETAMINOPHEN 325 MG TABLET (FP) PO PRN ×2 (09:52)
[2019-03-31] MEDS: PRENATAL VITAMINS W/ FOLIC ACID TABLET (FP) PO SCH (14:00)
[2019-03-31] MEDS: chlordiazePOXIDE HCL 25 MG CAPSULE PO SCH ×2 (17:31→22:57)
[2019-03-31] MEDS: THIAMINE HCL 100 MG TABLET (FP) PO SCH (22:57)
[2019-04-01] MEDS: chlordiazePOXIDE HCL 25 MG CAPSULE PO SCH ×4 (06:33→22:59)
[2019-04-01 10:56] LABS: ALBUMIN 3.1 g/dl (3.4-5.0); BILIRUBIN,TOTAL 0.4 mg/dL (0.2-1); CALCIUM 8.5 mg/dL (8.5-10.1); CREATININE 0.9 mg/dL (0.55-1.3); POTASSIUM 3.3 mmol/L (3.5-5.1); TOT PROT 6.5 g/dl (6.4-8.2)
[2019-04-01 10:57] LABS: HEMATOCRIT 39.6 % (35.4-49); HEMOGLOBIN 13.5 GM/dL (11.7-16.9); MCH 32.5 pg (25.7-33.7); MEAN CELL VOLUME 95.5 fl (80-96); MEAN PLT VOLUME 9.7 fl (7.5-11.1); PLATELET COUNT 225 K/MM3 (134-434); RBC 4.15 M/mm3 (4.00-5.60); RDW 13.8 % (11.9-15.9); WHITE BLOOD COUNT 3.5 K/mm3 (4.0-10.0)
[2019-04-01] MEDS: PRENATAL VITAMINS W/ FOLIC ACID TABLET (FP) PO SCH (11:02)
[2019-04-01] MEDS: THIAMINE HCL 100 MG TABLET (FP) PO SCH (22:59)
[2019-04-02] MEDS: chlordiazePOXIDE HCL 25 MG CAPSULE PO SCH ×2 (06:16→11:22)
[2019-04-02] MEDS: PRENATAL VITAMINS W/ FOLIC ACID TABLET (FP) PO SCH (11:22)
--- NOTE | 2019-04-02 11:55 | PN ---
S CIWA - CIWA Score Nausea/Vomitin-No Nausea/No Vomiting Muscle Tremors: 2 Anxiety: 2 Agitation: 1-Slight > Activity Paroxysmal Sweats: 3 Orientation: 0-Oriented Tacttile Disturbances: 1-Very Mild Itch/Numbness Auditory Disturbances: 0-None Visual Disturbances: 0-None Headache: 2-Mild CIWA-Ar Total Score: 11 S Progress Note (SOAP) Subjective: c/o sweats, headache, anxiety, and tremors. Objective: 04/02/19 11:54 Vital Signs 04/02/19 04/02/19 06:00 09:08 Temperature 98.1 F 98.0 F Pulse Rate 83 85 Respiratory 18 18 Rate Blood Pressure 128/87 133/83 Lab Results WBC 3.5 K/mm3 (4.0-10.0) L 04/01/19 07:00 RBC 4.15 M/mm3 (4.00-5.60) 04/01/19 07:00 Hgb 13.5 GM/dL (11.7-16.9) 04/01/19 07:00 Hct 39.6 % (35.4-49) 04/01/19 07:00 MCV 95.5 fl (80-96) 04/01/19 07:00 MCHC 34.0 g/dl (32.0-35.9) 04/01/19 07:00 RDW 13.8 % (11.9-15.9) 04/01/19 07:00 Plt Count 225 K/MM3 (134-434) 04/01/19 07:00 Sodium 141 mmol/L (136-145) 04/01/19 07:00 Potassium 3.3 mmol/L (3.5-5.1) L 04/01/19 07:00 Chloride 105 mmol/L (98-107) 04/01/19 07:00 Carbon Dioxide 31 mmol/L (21-32) 04/01/19 07:00 Anion Gap 6 MMOL/L (8-16) L 04/01/19 07:00 BUN 12 mg/dL (7-18) 04/01/19 07:00 Creatinine 0.9 mg/dL (0.55-1.3) 04/01/19 07:00 Random Glucose 110 mg/dL (74-106) H 04/01/19 07:00 Calcium 8.5 mg/dL (8.5-10.1) 04/01/19 07:00 Labs noted. Assessment: 04/02/19 11:54 AOX3, in no acute distress. full rom, ambulating in the unit withdrawal symptoms. Plan: continue detox. increase fluids.
[2019-04-02 14:34] VITALS: BP 135/79; PULSE 84; TEMP 98.1
--- NOTE | 2019-04-02 14:59 | DS ---
[facility] Detox Discharge Summary Admission Date: 03/31/19 Discharge Date: 04/02/19 (Pt is discharged AMA) - History Present History: Alcohol Dependence, Cocaine Dependence Additional Comments: Pt is left AMA. Pt did not complete his detox protocol. Pt refused to wait for the practitioner to talk to him. Pt is alert and oriented x3 and in no acute respiratory distress. Pertinent Past History: h/o alcohol and cocaine abuse - Physical Exam Results Vital Signs: Vital Signs Temperature 98.1 F 04/02/19 14:33 Pulse Rate 84 04/02/19 14:33 Respiratory Rate 18 04/02/19 14:33 Blood Pressure 135/79 04/02/19 14:33 O2 Sat by Pulse Oximetry (%) Vital Signs 04/02/19 04/02/19 09:08 14:33 Temperature 98.0 F 98.1 F Pulse Rate 85 84 Respiratory 18 18 Rate Blood Pressure 133/83 135/79 Lab Results WBC 3.5 K/mm3 (4.0-10.0) L 04/01/19 07:00 RBC 4.15 M/mm3 (4.00-5.60) 04/01/19 07:00 Hgb 13.5 GM/dL (11.7-16.9) 04/01/19 07:00 Hct 39.6 % (35.4-49) 04/01/19 07:00 MCV 95.5 fl (80-96) 04/01/19 07:00 MCHC 34.0 g/dl (32.0-35.9) 04/01/19 07:00 RDW 13.8 % (11.9-15.9) 04/01/19 07:00 Plt Count 225 K/MM3 (134-434) 04/01/19 07:00 Sodium 141 mmol/L (136-145) 04/01/19 07:00 Potassium 3.3 mmol/L (3.5-5.1) L 04/01/19 07:00 Chloride 105 mmol/L (98-107) 04/01/19 07:00 Carbon Dioxide 31 mmol/L (21-32) 04/01/19 07:00 Anion Gap 6 MMOL/L (8-16) L 04/01/19 07:00 BUN 12 mg/dL (7-18) 04/01/19 07:00 Creatinine 0.9 mg/dL (0.55-1.3) 04/01/19 07:00 Random Glucose 110 mg/dL (74-106) H 04/01/19 07:00 Calcium 8.5 mg/dL (8.5-10.1) 04/01/19 07:00 Labs noted. Pertinent Admission Physical Exam Findings: withdrawal symptoms. - Treatment Hospital Course: Detox Protocol Followed - Medication Discharge Medications: Ambulatory Orders NK [No Known Home Medication] 09/24/14 - Diagnosis (1) Alcohol dependence Current Visit: Yes Status: Acute (2) Cocaine dependence Current Visit: Yes Status: Chronic (3) Nicotine dependence Current Visit: No Status: Acute Qualifiers: Nicotine product type: cigarettes Substance use status: in withdrawal Qualified Code(s): F17.213 - Nicotine dependence, cigarettes, with withdrawal - AMA Did Patient Leave Against Medical Advice: Yes
[2019-04-02] MEDS ORDERED: chlordiazePOXIDE HCL 10 MG CAPSULE PO PRN (17:00)
[2019-04-02] MEDS ORDERED: chlordiazePOXIDE HCL 10 MG CAPSULE PO SCH (17:00)
[2019-04-03] MEDS ORDERED: chlordiazePOXIDE HCL 10 MG CAPSULE PO SCH (17:00)
== END 2019-04-02 14:50 | disposition left against medical advice (07) | DRG 770 ==
LOC: YASAS 08:17 → Y6N 10:19
PROVIDERS: ADMIT Surgery; ATTEND Surgery
PROC: HZ2ZZZZ Detoxification Services for Substance Abuse Treatment (ICD-10-PCS; principal; 2019-03-31)
DX: F10.230 Alcohol dependence with withdrawal, uncomplicated (principal); F14.20 Cocaine dependence, uncomplicated; F17.213 Nicotine dependence, cigarettes, with withdrawal; F10.229 Alcohol dependence with intoxication, unspecified
CPT/HCPCS: 36415; 80053; 85027; 86593

== ENCOUNTER 2019-07-25 13:54 | Inpatient (IN) | payer OTHER ==
[2019-07-25 17:47] VITALS: BMI 28.0
--- NOTE | 2019-07-25 18:59 | HP ---
CIWA Score Nausea/Vomitin-Mild Nausea/No Vomiting Muscle Tremors: 3 Anxiety: 4-Mod. Anxious/Guarded Agitation: 2 Paroxysmal Sweats: 2 Orientation: 0-Oriented Tacttile Disturbances: 0-None Auditory Disturbances: 0-None Visual Disturbances: 0-None Headache: 2-Mild CIWA-Ar Total Score: 14 - Admission Criteria [facility]AS[facility] Guidelines: Admission for Medically Managed Detox: Requires at least one of the followin. CIWA greater than 12 2. Seizures within the past 24 hours 3. Delirium tremens within the past 24 hours 4. Hallucinations within the past 24 hours 5. Acute intervention needed for co occurring medical disorder 6. Acute intervention needed for co occurring psychiatric disorder 7. Severe withdrawal that cannot be handled at a lower level of care (continued vomiting, continued diarrhea, abnormal vital signs) requiring intravenous medication and/or fluids 8. Admission ROS S - [facility] Chief Complaint: "I am here because I want to clean my life up, starting with the drugs and alcohol" Allergies/Adverse Reactions: Allergies Allergy/AdvReac Type Severity Reaction Status Date / Time No Known Allergies Allergy Verified 07/25/19 17:41 History of Present Illness: 48 year old male with no significant past medical history presented for detox from alcohol and cocaine. Been to detox multiple times over the past year and reports that his relapse is due to significant life stressors. He states that he has been living in a retirement for 4-5 years, and before that lived with his parents on [address]. States that he does not want to inconvenience his parents by living with them as the get older and thus decided to live in a retirement. 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 Family History: no family history of drug or alcohol use Social History: family is supportive Exam Limitations: No Limitations - Ebola screening Have you traveled outside of the country in the last 21 days: No (N) Have you had contact with anyone from an Ebola affected area: No Do you have a fever: No - Review of Systems Constitutional: Diaphoresis EENT: reports: No Symptoms Reported Respiratory: reports: No Symptoms reported Cardiac: reports: No Symptoms Reported GI: reports: Diarrhea, Nausea : reports: No Symptoms Reported Musculoskeletal: reports: No Symptoms Reported Integumentary: reports: No Symptoms Reported Neuro: reports: Headache Endocrine: reports: No Symptoms Reported Hematology: reports: No Symptoms Reported Psychiatric: reports: Mood/Affect Appropiate, Orientated x3 Patient History - Patient Medical History Hx Anemia: No Hx Asthma: No Hx Chronic Obstructive Pulmonary Disease (COPD): No Hx Cancer: No Hx Cardiac Disorders: No Hx Congestive Heart Failure: No Hx Hypertension: No Hx Hypercholesterolemia: No Hx Pacemaker: No HX Cerebrovascular Accident: No Hx Seizures: No Hx Dementia: No Hx Diabetes: No Hx Gastrointestinal Disorders: No Hx Liver Disease: No Hx Genitourinary Disorders: No Hx Sexually Transmitted Disorders: No Hx Renal Disease (ESRD): No Hx Thyroid Disease: No Hx Human Immunodeficiency Virus (HIV): No (02/17 negative) Hx Hepatitis C: No Hx Depression: No Hx Suicide Attempt: No Hx Bipolar Disorder: No Hx Schizophrenia: No - Patient Surgical History Past Surgical History: No Hx Neurologic Surgery: No Hx Cataract Extraction: No Hx Cardiac Surgery: No Hx Lung Surgery: No Hx Breast Surgery: No Hx Breast Biopsy: No Hx Abdominal Surgery: No Hx Appendectomy: No Hx Cholecystectomy: No Hx Genitourinary Surgery: No Hx Section: No Hx Orthopedic Surgery: No Anesthesia Reaction: No - PPD History Date: 04/02/19 Results: 0 mm - Smoking Cessation Smoking history: Current every day smoker Have you smoked in the past 12 months: Yes Aproximately how many cigarettes per day: 5 If you are a former smoker, when did you quit?: 2017 Cigars Per Day: 0 Hx Chewing Tobacco Use: No Initiated information on smoking cessation: Yes 'Breaking Loose' booklet given: 07/25/19 - Substances abused Alcohol Substance route: Oral Frequency: Daily Amount used: 3 PT. VODKA, 6 beers ( 25 oz ) Age of first use: 15 Date of last use: 07/24/19 Cocaine Substance route: Smoking Frequency: Daily Amount used: $40 Age of first use: 38 Date of last use: 07/23/19 Admission Physical Exam BHS - Vital Signs Vital Signs: Vital Signs - 24 hr 07/25/19 17:42 Temperature 97.8 F Pulse Rate 75 Respiratory 16 Rate Blood Pressure 148/93 - Physical General Appearance: Yes: No Apparent Distress, Nourished HEENTM: Yes: EOMI, Hearing grossly Normal, Normal ENT Inspection, Normocephalic , Normal Voice, ELISEO, Pharynx Normal Respiratory: Yes: Chest Non-Tender, Lungs Clear, Normal Breath Sounds Neck: Yes: No masses,lesions,Nodules Cardiology: Yes: Regular Rhythm, Regular Rate Abdominal: Yes: Normal Bowel Sounds, Non Tender, Flat, Soft Back: Yes: Within Normal Limits, Normal Inspection Musculoskeletal: Yes: full range of Motion, Gait Steady Extremities: Yes: Within Normal Limits, Normal Capillary Refill, Normal Inspection, Normal Range of Motion, Non-Tender Neurological: Yes: line server II-XII NML intact, Fully Oriented, Alert, Motor Strength 5/5, Normal Mood/Affect, Normal Response Integumentary: Yes: Normal Color, Dry, Warm Breathalyzer - Breathalyzer Breathalyzer: 0 Vital Signs - Vital Signs Temperature: 97.8 F Pulse Rate: 75 Respiratory Rate: 12 Blood Pressure: 148/93 Urine Drug Screen - Test Device Lot number: [id number] Expiration date: 04/01/21 - Control Is test valid?: Yes - Results Drug screen NEGATIVE: No Urine drug screen results: THC-Marijuana, NAKUL-Cocaine Inpatient Rehab Admission - Rehab Decision to Admit Inpatient rehab admission?: No
--- NOTE | 2019-07-25 19:08 | PN ---
Teaching Attending Note Name of Resident: Alexander Can ATTENDING PHYSICIAN STATEMENT I saw and evaluated the patient. I reviewed the resident's note and discussed the case with the resident. I agree with the resident's findings and plan as documented. SUBJECTIVE: 48 yo with alcohol use disorder, here several times in the last year. Also cocaine alcohol drinks vodka and beer every day cocaine- uses daily, IH OBJECTIVE: Vital Signs - 24 hr 07/25/19 07/25/19 17:42 19:05 Temperature 97.8 F 97.8 F Pulse Rate 75 75 Respiratory 16 12 Rate Blood Pressure 148/93 148/93 alert and oriented ASSESSMENT AND PLAN: Admit for alcohol use disorder: alcohol detox protocol
[2019-07-25] MEDS ORDERED: hydrOXYzine PAMOATE 25 MG CAPSULE (FP) PO PRN (19:12)
[2019-07-25] MEDS ORDERED: ACETAMINOPHEN 325 MG TABLET (FP) PO PRN ×2 (19:12)
[2019-07-25] MEDS ORDERED: MELATONIN 5 MG TABLETS PO PRN (19:12)
[2019-07-25] MEDS ORDERED: BISMUTH SUBSALICYLATE 524 MG/30 ML UD PO PRN (19:12)
[2019-07-25] MEDS ORDERED: IBUPROFEN 400 MG TABLET (FP) PO PRN (19:12)
[2019-07-25] MEDS ORDERED: METHOCARBAMOL 500 MG TABLET PO PRN (19:12)
[2019-07-25] MEDS ORDERED: MAG HYDROX/AL HYDROX/SIMETH 30 ML UNIT-DOSE CUP PO PRN (19:12)
[2019-07-25] MEDS ORDERED: MENTHOL/PHENOL 1 EACH UD MM PRN (19:12)
[2019-07-25] MEDS ORDERED: MAGNESIUM HYDROX 2400MG/30ML ORAL SUSPENSION 30 ML CUP PO PRN (19:12)
[2019-07-25] MEDS ORDERED: MAGNESIUM CITRATE 300 ML BOTTLE PO PRN (19:12)
[2019-07-25] MEDS: chlordiazePOXIDE HCL 25 MG CAPSULE PO PRN (19:48)
[2019-07-25] MEDS: chlordiazePOXIDE HCL 25 MG CAPSULE PO SCH ×2 (19:49→22:09)
[2019-07-25] MEDS: THIAMINE HCL 100 MG TABLET (FP) PO SCH (22:09)
[2019-07-26] MEDS: chlordiazePOXIDE HCL 25 MG CAPSULE PO SCH ×5 (07:07→22:09)
[2019-07-26] MEDS ORDERED: PRENATAL VITAMINS W/ FOLIC ACID TABLET (FP) PO SCH (10:00)
[2019-07-26 10:25] LABS: ALBUMIN 2.9 g/dl (3.4-5.0); BILIRUBIN,TOTAL 0.2 mg/dL (0.2-1); BLOOD UREA NITROGEN 13.2 mg/dL (7-18); CALCIUM 8.4 mg/dL (8.5-10.1); POTASSIUM 4.1 mmol/L (3.5-5.1); TOT PROT 6.7 g/dl (6.4-8.2)
[2019-07-26 10:43] LABS: HEMATOCRIT 38.4 % (35.4-49); HEMOGLOBIN 12.9 GM/dL (11.7-16.9); MCH 31.9 pg (25.7-33.7); MCHC 33.5 g/dl (32.0-35.9); MEAN CELL VOLUME 95.1 fl (80-96); MEAN PLT VOLUME 9.3 fl (7.5-11.1); PLATELET COUNT 233 K/MM3 (134-434); RBC 4.04 M/mm3 (4.00-5.60); RDW 13.9 % (11.9-15.9); WHITE BLOOD COUNT 3.2 K/mm3 (4.0-10.0)
[2019-07-26] MEDS: chlordiazePOXIDE HCL 25 MG CAPSULE PO PRN (12:36)
[2019-07-26 13:10] VITALS: BP 137/84; PULSE 79; TEMP 97.3
--- NOTE | 2019-07-26 13:26 | PN ---
S CIWA - CIWA Score Nausea/Vomitin-No Nausea/No Vomiting Muscle Tremors: 3 Anxiety: 3 Agitation: 0-Normal Activity Paroxysmal Sweats: No Perspiration Orientation: 0-Oriented Tacttile Disturbances: 2-Mild Itch/Numbness/Burn Auditory Disturbances: 0-None Visual Disturbances: 2-Mild Sensitivity Headache: 2-Mild CIWA-Ar Total Score: 12 BHS Progress Note (SOAP) Subjective: Fatigue, Anxious, Tremors, H/A. Objective: PATIENT A & O X 3. IN NO ACUTE DISTRESS. 07/26/19 13:29 Vital Signs Temperature 97.3 F L 07/26/19 13:09 Pulse Rate 79 07/26/19 13:09 Respiratory Rate 18 07/26/19 13:09 Blood Pressure 137/84 07/26/19 13:09 O2 Sat by Pulse Oximetry (%) Laboratory Tests 07/26/19 07/26/19 07/26/19 08:15 08:15 08:15 WBC 3.2 L RBC 4.04 Hgb 12.9 Hct 38.4 MCV 95.1 MCH 31.9 MCHC 33.5 RDW 13.9 Plt Count 233 MPV 9.3 Sodium 142 Potassium 4.1 Chloride 108 H Carbon Dioxide 30 Anion Gap 5 L BUN 13.2 Creatinine 1.0 Est GFR (CKD-EPI)AfAm 104.15 Est GFR (CKD-EPI)NonAf 89.86 Random Glucose 90 Calcium 8.4 L Total Bilirubin 0.2 AST 24 ALT 25 Alkaline Phosphatase 99 Total Protein 6.7 Albumin 2.9 L RPR Titer Nonreactive LABS NOTED. PATIENT HAS HAD LOW WBC LEVEL ON PREVIOUS ADMISSIONS. 07/26/19 13:32 Assessment: 07/26/19 13:30 WITHDRAWAL SYMPTOMS. Plan: CONTINUE DETOX.
[2019-07-26] MEDS: THIAMINE HCL 100 MG TABLET (FP) PO SCH (21:26)
[2019-07-27] MEDS ORDERED: chlordiazePOXIDE HCL 25 MG CAPSULE PO SCH (05:00)
--- NOTE | 2019-07-27 06:28 | DS ---
[facility] Detox Discharge Summary Admission Date: 07/25/19 Discharge Date: 07/27/19 - History Additional Comments: Patient is leaving against medical advice because as per the nurse, he reports that "I have to leave." Risks and consequences of his action reinforced. Patient verbalized understanding of instructions and left Pertinent Past History: Alcohol dependence, cocaine dependence, nicotine dependence, anxiety - Physical Exam Results Vital Signs: Vital Signs Temperature 97.3 F L 07/26/19 13:09 Pulse Rate 79 07/26/19 13:09 Respiratory Rate 18 07/27/19 03:30 Blood Pressure 137/84 07/26/19 13:09 O2 Sat by Pulse Oximetry (%) Laboratory Last Values WBC 3.2 K/mm3 (4.0-10.0) L 07/26/19 08:15 RBC 4.04 M/mm3 (4.00-5.60) 07/26/19 08:15 Hgb 12.9 GM/dL (11.7-16.9) 07/26/19 08:15 Hct 38.4 % (35.4-49) 07/26/19 08:15 MCV 95.1 fl (80-96) 07/26/19 08:15 MCH 31.9 pg (25.7-33.7) 07/26/19 08:15 MCHC 33.5 g/dl (32.0-35.9) 07/26/19 08:15 RDW 13.9 % (11.9-15.9) 07/26/19 08:15 Plt Count 233 K/MM3 (134-434) 07/26/19 08:15 MPV 9.3 fl (7.5-11.1) 07/26/19 08:15 Sodium 142 mmol/L (136-145) 07/26/19 08:15 Potassium 4.1 mmol/L (3.5-5.1) 07/26/19 08:15 Chloride 108 mmol/L (98-107) H 07/26/19 08:15 Carbon Dioxide 30 mmol/L (21-32) 07/26/19 08:15 Anion Gap 5 MMOL/L (8-16) L 07/26/19 08:15 BUN 13.2 mg/dL (7-18) 07/26/19 08:15 Creatinine 1.0 mg/dL (0.55-1.3) 07/26/19 08:15 Est GFR (CKD-EPI)AfAm 104.15 07/26/19 08:15 Est GFR (CKD-EPI)NonAf 89.86 07/26/19 08:15 Random Glucose 90 mg/dL (74-106) 07/26/19 08:15 Calcium 8.4 mg/dL (8.5-10.1) L 07/26/19 08:15 Total Bilirubin 0.2 mg/dL (0.2-1) 07/26/19 08:15 AST 24 U/L (15-37) 07/26/19 08:15 ALT 25 U/L (13-61) 07/26/19 08:15 Alkaline Phosphatase 99 U/L (45-117) 07/26/19 08:15 Total Protein 6.7 g/dl (6.4-8.2) 07/26/19 08:15 Albumin 2.9 g/dl (3.4-5.0) L 07/26/19 08:15 RPR Titer Nonreactive (NONREACTIVE) 07/26/19 08:15 Pertinent Admission Physical Exam Findings: Alcohol withdrawal symptoms - Medication Discharge Medications: Ambulatory Orders NK [No Known Home Medication] 09/24/14 - Diagnosis (1) Alcohol dependence with uncomplicated withdrawal Current Visit: No Status: Acute (2) Nicotine dependence Current Visit: No Status: Acute Qualifiers: Nicotine product type: cigarettes Substance use status: in withdrawal Qualified Code(s): F17.213 - Nicotine dependence, cigarettes, with withdrawal (3) Anxiety Current Visit: No Status: Chronic (4) Cocaine dependence Current Visit: No Status: Chronic - AMA Did Patient Leave Against Medical Advice: Yes
[2019-07-28] MEDS ORDERED: chlordiazePOXIDE HCL 10 MG CAPSULE PO PRN
[2019-07-28] MEDS ORDERED: chlordiazePOXIDE HCL 10 MG CAPSULE PO SCH (05:00)
[2019-07-29] MEDS ORDERED: chlordiazePOXIDE HCL 10 MG CAPSULE PO SCH (05:00)
[2019-07-30] MEDS ORDERED: chlordiazePOXIDE HCL 10 MG CAPSULE PO ONE (05:00)
== END 2019-07-27 06:20 | disposition left against medical advice (07) | DRG 770 ==
LOC: YASAS 13:54 → Y3N 19:21
PROVIDERS: ADMIT Surgery; ATTEND Surgery
PROC: HZ2ZZZZ Detoxification Services for Substance Abuse Treatment (ICD-10-PCS; principal; 2019-07-25)
DX: F10.230 Alcohol dependence with withdrawal, uncomplicated (principal); F14.20 Cocaine dependence, uncomplicated; F17.213 Nicotine dependence, cigarettes, with withdrawal; F41.9 Anxiety disorder, unspecified
CPT/HCPCS: 36415; 80053; 85027; 86593

== ENCOUNTER 2021-10-18 19:57 | Inpatient (IN) | payer OTHER ==
[2021-10-18] MEDS ORDERED: METHOCARBAMOL 500 MG TABLET PO PRN (21:07)
[2021-10-18] MEDS ORDERED: ACETAMINOPHEN 325 MG TABLET (FP) PO PRN ×2 (21:07)
[2021-10-18] MEDS ORDERED: MAGNESIUM HYDROX 2400MG/30ML ORAL SUSPENSION 30 ML CUP PO PRN (21:07)
[2021-10-18] MEDS ORDERED: MAGNESIUM CITRATE 300 ML BOTTLE PO PRN (21:07)
[2021-10-18] MEDS ORDERED: BISMUTH SUBSALICYLATE 524 MG/30 ML PO PRN (21:07)
[2021-10-18] MEDS ORDERED: MENTHOL/PHENOL 1 EACH UD MM PRN (21:07)
[2021-10-18] MEDS ORDERED: ONDANSETRON *ODT* 4 MG TABLET SL PRN (21:07)
[2021-10-18] MEDS ORDERED: MAG HYDROX/AL HYDROX/SIMETH 30 ML UNIT-DOSE CUP PO PRN (21:07)
[2021-10-18] MEDS ORDERED: IBUPROFEN 400 MG TABLET (FP) PO PRN (21:07)
[2021-10-19] MEDS: MELATONIN 5 MG TABLETS PO SCH ×2 (00:30→22:38)
[2021-10-19] MEDS: THIAMINE HCL 100 MG TABLET (FP) PO SCH ×2 (00:30→22:38)
[2021-10-19] MEDS: PRENATAL VITAMINS W/ FOLIC ACID TABLET (FP) PO SCH (10:56)
[2021-10-19 11:17] LABS: HEMATOCRIT 37.5 % (35.4-49); HEMOGLOBIN 12.8 GM/dL (11.7-16.9); MCH 31.7 pg (25.7-33.7); MEAN PLT VOLUME 9.7 fl (7.5-11.1); PLATELET COUNT 218 10^3/uL (134-434); RBC 4.04 M/mm3 (4.00-5.60); WHITE BLOOD COUNT 4.2 K/mm3 (4.0-10.0)
[2021-10-19 11:29] LABS: ALBUMIN 3.2 g/dl (3.4-5.0); BLOOD UREA NITROGEN 18.9 mg/dL (7-18); CALCIUM 8.6 mg/dL (8.5-10.1)
[2021-10-19 11:32] LABS: CREATININE 1.1 mg/dL (0.55-1.3)
[2021-10-19 11:34] LABS: BILIRUBIN,TOTAL 0.7 mg/dL (0.2-1); TOT PROT 6.8 g/dl (6.4-8.2)
[2021-10-20] MEDS: PRENATAL VITAMINS W/ FOLIC ACID TABLET (FP) PO SCH (11:15)
[2021-10-20 16:45] VITALS: BP 132/81; PULSE 75; TEMP 97.3
== END 2021-10-20 17:56 | disposition other institution (70) | DRG 774 ==
LOC: YASAS 19:57 → Y6N 22:13
PROVIDERS: ADMIT Allergy & Immunology; ATTEND Allergy & Immunology
PROC: HZ2ZZZZ Detoxification Services for Substance Abuse Treatment (ICD-10-PCS; principal; 2021-10-18)
DX: F10.230 Alcohol dependence with withdrawal, uncomplicated (principal); F14.20 Cocaine dependence, uncomplicated; F17.210 Nicotine dependence, cigarettes, uncomplicated; R73.09 Other abnormal glucose
CPT/HCPCS: 36415; 80053; 85027; 86780; 87811; 93005; 93010; C9803; U0003; U0005

== ENCOUNTER 2021-10-20 16:19 | Inpatient (IN) | payer OTHER ==
[2021-10-20] MEDS ORDERED: P-EPHED 60MG/TRIPROLIDI 2.5MG TABLET PO PRN (16:34)
[2021-10-20] MEDS ORDERED: guaiFENesin 200 MG/10 ML 10 ML UNIT-DOSE CUPS PO PRN (16:34)
[2021-10-20] MEDS ORDERED: LOPERAMIDE HCL 2 MG CAPSULE PO PRN (16:34)
[2021-10-20] MEDS ORDERED: MAGNESIUM HYDROX 2400MG/30ML ORAL SUSPENSION 30 ML CUP PO PRN (16:34)
[2021-10-20] MEDS ORDERED: IBUPROFEN 400 MG TABLET (FP) PO PRN (16:34)
[2021-10-20] MEDS ORDERED: NICOTINE 10 MG CARTRIDGE (INHALER) IH PRN (16:34)
[2021-10-20] MEDS ORDERED: MAG HYDROX/AL HYDROX/SIMETH 30 ML UNIT-DOSE CUP PO PRN (16:34)
[2021-10-20] MEDS ORDERED: ACETAMINOPHEN 325 MG TABLET (FP) PO PRN (16:34)
[2021-10-20] MEDS ORDERED: MAGNESIUM CITRATE 300 ML BOTTLE PO PRN (16:34)
[2021-10-20] MEDS: hydrOXYzine PAMOATE 25 MG CAPSULE (FP) PO SCH ×2 (18:16→22:19)
[2021-10-20] MEDS ORDERED: THIAMINE HCL 100 MG TABLET (FP) PO SCH (22:00)
[2021-10-20] MEDS ORDERED: MELATONIN 5 MG TABLETS PO SCH (22:00)
[2021-10-21] MEDS: hydrOXYzine PAMOATE 25 MG CAPSULE (FP) PO SCH ×2 (06:55→10:40)
[2021-10-21 07:32] VITALS: BP 155/67; PULSE 77; TEMP 98
[2021-10-21] MEDS ORDERED: PRENATAL VITAMINS W/ FOLIC ACID TABLET (FP) PO SCH (10:00)
[2021-10-21] MEDS ORDERED: NICOTINE 7 MG/24 HOURS TOPICAL PATCH TD SCH (10:00)
[2021-10-21] MEDS ORDERED: hydrOXYzine PAMOATE 25 MG CAPSULE (FP) PO PRN (11:10)
== END 2021-10-21 13:45 | disposition left against medical advice (07) | DRG 770 ==
LOC: YASAS 16:19 → Y3W 16:20
PROVIDERS: ADMIT Allergy & Immunology; ATTEND Allergy & Immunology
PROC: HZ42ZZZ Group Counseling for Substance Abuse Treatment, Cognitive-Behavioral (ICD-10-PCS; principal; 2021-10-18)
DX: F10.20 Alcohol dependence, uncomplicated (principal); F14.20 Cocaine dependence, uncomplicated; Z87.891 Personal history of nicotine dependence

== ENCOUNTER 2023-03-21 12:40 | Inpatient (IN) | payer OTHER ==
[2023-03-21 13:23] VITALS: BMI 26.6
[2023-03-21] MEDS ORDERED: IBUPROFEN 400 MG TABLET (FP) PO PRN (14:28)
[2023-03-21] MEDS ORDERED: METHOCARBAMOL 500 MG TABLET PO PRN (14:28)
[2023-03-21] MEDS ORDERED: chlordiazePOXIDE HCL 25 MG CAPSULE PO PRN (14:28)
[2023-03-21] MEDS ORDERED: LOPERAMIDE HCL 2 MG CAPSULE PO PRN (14:28)
[2023-03-21] MEDS ORDERED: DICYCLOMINE HCL 10 MG CAPSULE PO PRN (14:28)
[2023-03-21] MEDS ORDERED: MAG HYDROX/AL HYDROX/SIMETH 30 ML UNIT-DOSE CUP PO PRN (14:28)
[2023-03-21] MEDS ORDERED: NICOTINE 10 MG CARTRIDGE (INHALER) IH PRN (14:28)
[2023-03-21] MEDS ORDERED: NALOXONE HCL (KLOXXADO) 8 MG SPRAY NS PRN (14:28)
[2023-03-21] MEDS ORDERED: ACETAMINOPHEN 325 MG TABLET (FP) PO PRN (14:28)
[2023-03-21] MEDS ORDERED: guaiFENesin 600 MG TABLET.ER (FP) PO PRN (14:28)
[2023-03-21] MEDS ORDERED: ONDANSETRON *ODT* 4 MG TABLET SL PRN (14:28)
[2023-03-21] MEDS ORDERED: BENZONATATE 200 MG CAPSULE PO PRN (14:28)
[2023-03-21] MEDS ORDERED: BENZOCAINE/MENTHOL (CHLORASEPTIC ) LOZENGE MM PRN (14:28)
[2023-03-21] MEDS ORDERED: NALOXONE HCL 0.4 MG/ML VIAL IM PRN (14:28)
[2023-03-21] MEDS ORDERED: IBUPROFEN 600 MG TABLET (FP) PO PRN (14:28)
[2023-03-21] MEDS ORDERED: MAGNESIUM HYDROX 2400MG/30ML ORAL SUSPENSION 30 ML CUP PO PRN (14:28)
[2023-03-21] MEDS ORDERED: POLYETHYLENE GLYCOL (HEALTHYLAX) 3350 17 GM PACKET PO PRN (14:28)
[2023-03-21] MEDS ORDERED: chlordiazePOXIDE HCL 25 MG CAPSULE ONE (17:18)
[2023-03-21] MEDS: chlordiazePOXIDE HCL 25 MG CAPSULE PO SCH ×2 (17:21→23:14)
[2023-03-21] MEDS: THIAMINE HCL 100 MG TABLET (FP) PO SCH (23:13)
[2023-03-21] MEDS: MELATONIN 5 MG TABLETS PO SCH (23:13)
[2023-03-22] MEDS: chlordiazePOXIDE HCL 25 MG CAPSULE PO SCH ×6 (06:00→22:18)
[2023-03-22] MEDS: PRENATAL VITAMINS W/ FOLIC ACID TABLET (FP) PO SCH (11:02)
[2023-03-22] MEDS: BISMUTH SUBSALICYLATE 524 MG/30 ML PO PRN ×2 (17:34→22:22)
[2023-03-22] MEDS: THIAMINE HCL 100 MG TABLET (FP) PO SCH (22:18)
[2023-03-22] MEDS: MELATONIN 5 MG TABLETS PO SCH (22:21)
[2023-03-23] MEDS: chlordiazePOXIDE HCL 25 MG CAPSULE PO SCH ×3 (05:58→17:44)
[2023-03-23] MEDS: PRENATAL VITAMINS W/ FOLIC ACID TABLET (FP) PO SCH (10:33)
[2023-03-23] MEDS ORDERED: METOPROLOL TARTRATE 25 MG TABLET (FP) PO ONE (14:00)
[2023-03-23 15:30] LABS: HEMATOCRIT 34.6 % (35.4-49); HEMOGLOBIN 11.8 GM/dL (11.7-16.9); MCHC 34.1 g/dl (32.0-35.9); MEAN CELL VOLUME 90.8 fl (80-96); MEAN PLT VOLUME 9.3 fl (7.5-11.1); PLATELET COUNT 258 10^3/uL (134-434); RBC 3.81 M/mm3 (4.00-5.60); RDW 16.9 % (11.9-15.9); WHITE BLOOD COUNT 3.4 K/mm3 (4.0-10.0)
[2023-03-23 15:35] LABS: BLOOD UREA NITROGEN 9.6 mg/dL (7-18); CREATININE 0.8 mg/dL (0.55-1.3)
[2023-03-23 15:38] LABS: ALBUMIN 2.8 g/dl (3.4-5.0); CALCIUM 8.9 mg/dL (8.5-10.1)
[2023-03-23 15:39] LABS: BILIRUBIN,TOTAL 0.3 mg/dL (0.2-1)
[2023-03-23 16:59] VITALS: RESP 16
[2023-03-23 20:51] VITALS: BP 116/69; PULSE 84; TEMP 98.6
[2023-03-24] MEDS ORDERED: chlordiazePOXIDE HCL 10 MG CAPSULE PO PRN
[2023-03-24] MEDS ORDERED: chlordiazePOXIDE HCL 10 MG CAPSULE PO SCH (05:00)
[2023-03-25] MEDS ORDERED: chlordiazePOXIDE HCL 10 MG CAPSULE PO SCH (05:00)
[2023-03-26] MEDS ORDERED: chlordiazePOXIDE HCL 10 MG CAPSULE PO ONE (05:00)
== END 2023-03-23 19:43 | disposition left against medical advice (07) | DRG 770 ==
LOC: YASAS 12:40 → Y6N 17:40
PROVIDERS: ADMIT Allergy & Immunology; ATTEND Surgery
PROC: HZ2ZZZZ Detoxification Services for Substance Abuse Treatment (ICD-10-PCS; principal; 2023-03-21)
DX: F10.230 Alcohol dependence with withdrawal, uncomplicated (principal); F14.20 Cocaine dependence, uncomplicated; F17.210 Nicotine dependence, cigarettes, uncomplicated; F20.9 Schizophrenia, unspecified; F41.9 Anxiety disorder, unspecified; Z99.89 Dependence on other enabling machines and devices; Z56.0 Unemployment, unspecified; Z59.00 Homelessness unspecified
CPT/HCPCS: 36415; 80053; 85027; 86780; C9803-CS; U0003; U0005

== ENCOUNTER 2023-08-27 11:52 | Inpatient (IN) | payer OTHER ==
[2023-08-27 12:59] VITALS: BMI 27.7
[2023-08-27] MEDS ORDERED: guaiFENesin 600 MG TABLET.ER (FP) PO PRN (13:12)
[2023-08-27] MEDS ORDERED: IBUPROFEN 400 MG TABLET (FP) PO PRN (13:12)
[2023-08-27] MEDS ORDERED: BISMUTH SUBSALICYLATE 524 MG/30 ML PO PRN (13:12)
[2023-08-27] MEDS ORDERED: chlordiazePOXIDE HCL 25 MG CAPSULE PO PRN (13:12)
[2023-08-27] MEDS ORDERED: LOPERAMIDE HCL 2 MG CAPSULE PO PRN (13:12)
[2023-08-27] MEDS ORDERED: MAGNESIUM HYDROX 2400MG/30ML ORAL SUSPENSION 30 ML CUP PO PRN (13:12)
[2023-08-27] MEDS ORDERED: POLYETHYLENE GLYCOL (HEALTHYLAX) 3350 17 GM PACKET PO PRN (13:12)
[2023-08-27] MEDS ORDERED: NALOXONE HCL (KLOXXADO) 8 MG SPRAY NS PRN (13:12)
[2023-08-27] MEDS ORDERED: BENZONATATE 200 MG CAPSULE PO PRN (13:12)
[2023-08-27] MEDS ORDERED: DICYCLOMINE HCL 10 MG CAPSULE PO PRN (13:12)
[2023-08-27] MEDS ORDERED: IBUPROFEN 600 MG TABLET (FP) PO PRN (13:12)
[2023-08-27] MEDS ORDERED: BENZOCAINE/MENTHOL (CHLORASEPTIC ) LOZENGE MM PRN (13:12)
[2023-08-27] MEDS ORDERED: MAG HYDROX/AL HYDROX/SIMETH 30 ML UNIT-DOSE CUP PO PRN (13:12)
[2023-08-27] MEDS ORDERED: METHOCARBAMOL 500 MG TABLET PO PRN (13:12)
[2023-08-27] MEDS ORDERED: ONDANSETRON *ODT* 4 MG TABLET SL PRN (13:12)
[2023-08-27] MEDS ORDERED: NALOXONE HCL 0.4 MG/ML VIAL IM PRN (13:12)
[2023-08-27] MEDS: PRENATAL VITAMINS W/ FOLIC ACID TABLET (FP) PO SCH (13:36)
[2023-08-27] MEDS: NICOTINE 14 MG/24 HOURS TOPICAL PATCH TD SCH (13:36)
[2023-08-27] MEDS: chlordiazePOXIDE HCL 25 MG CAPSULE PO SCH ×2 (17:48→23:48)
[2023-08-27] MEDS: MELATONIN 5 MG TABLETS PO SCH (22:58)
[2023-08-27] MEDS: THIAMINE HCL 100 MG TABLET (FP) PO SCH (22:58)
[2023-08-28] MEDS: chlordiazePOXIDE HCL 25 MG CAPSULE PO SCH ×4 (05:52→22:39)
[2023-08-28 10:49] LABS: CHLORIDE 106 mmol/L (98-107); POTASSIUM 3.1 mmol/L (3.5-5.1); SODIUM 142 mmol/L (136-145)
[2023-08-28 10:50] LABS: HEMATOCRIT 37.2 % (35.4-49); HEMOGLOBIN 12.7 GM/dL (11.7-16.9); MCH 31.9 pg (25.7-33.7); MCHC 34.2 g/dl (32.0-35.9); MEAN CELL VOLUME 93.4 fl (80-96); MEAN PLT VOLUME 8.9 fl (7.5-11.1); PLATELET COUNT 253 10^3/uL (134-434); RBC 3.99 M/mm3 (4.00-5.60); RDW 13.7 % (11.9-15.9); WHITE BLOOD COUNT 4.3 K/mm3 (4.0-10.0)
[2023-08-28] MEDS: NICOTINE 14 MG/24 HOURS TOPICAL PATCH TD SCH (10:51)
[2023-08-28] MEDS: PRENATAL VITAMINS W/ FOLIC ACID TABLET (FP) PO SCH (10:51)
[2023-08-28 10:53] LABS: ALBUMIN 3.1 g/dl (3.4-5.0); ANION GAP 7 mmol/L (4-13); BLOOD UREA NITROGEN 17.8 mg/dL (7-18); CO2 29 mmol/L (21-32); GLUCOSE,RANDOM 117 mg/dL (74-106)
[2023-08-28 10:56] LABS: CREATININE 1.1 mg/dL (0.55-1.3); SGOT/AST 16 U/L (15-37); SGPT/ALT 20 U/L (13-61)
[2023-08-28 10:58] LABS: BILIRUBIN,TOTAL 0.5 mg/dL (0.2-1); TOT PROT 6.3 g/dl (6.4-8.2)
[2023-08-28 10:59] LABS: ALK PHOS 89 U/L (45-117)
[2023-08-28] MEDS: hydrOXYzine PAMOATE 25 MG CAPSULE (FP) PO PRN (22:38)
[2023-08-28] MEDS: MELATONIN 5 MG TABLETS PO SCH (22:38)
[2023-08-28] MEDS: THIAMINE HCL 100 MG TABLET (FP) PO SCH (22:38)
[2023-08-29] MEDS: chlordiazePOXIDE HCL 25 MG CAPSULE PO SCH ×4 (05:41→23:25)
[2023-08-29] MEDS: NICOTINE 14 MG/24 HOURS TOPICAL PATCH TD SCH (10:35)
[2023-08-29] MEDS: PRENATAL VITAMINS W/ FOLIC ACID TABLET (FP) PO SCH (10:35)
[2023-08-29 23:20] VITALS: RESP 18
[2023-08-29] MEDS: THIAMINE HCL 100 MG TABLET (FP) PO SCH (23:26)
[2023-08-29] MEDS: MELATONIN 5 MG TABLETS PO SCH (23:26)
[2023-08-29] MEDS ORDERED: POTASSIUM CHLORIDE TABS 20 MEQ TABLET.ER (FP) PO STA (23:31)
[2023-08-30] MEDS ORDERED: chlordiazePOXIDE HCL 10 MG CAPSULE PO PRN
[2023-08-30] MEDS: chlordiazePOXIDE HCL 10 MG CAPSULE PO SCH ×5 (05:35→22:26)
[2023-08-30] MEDS: NICOTINE 14 MG/24 HOURS TOPICAL PATCH TD SCH (10:28)
[2023-08-30] MEDS: PRENATAL VITAMINS W/ FOLIC ACID TABLET (FP) PO SCH (10:28)
[2023-08-30] MEDS: ACETAMINOPHEN 325 MG TABLET (FP) PO PRN ×2 (16:15→22:27)
[2023-08-30 18:40] VITALS: PULSE 93
[2023-08-30] MEDS ORDERED: IBUPROFEN 400 MG TABLET (FP) PO ONE ×3 (19:43→19:53)
[2023-08-30] MEDS ORDERED: BENZOCAINE 20 % GEL TUBE MM PRN (19:43)
[2023-08-30 20:45] VITALS: BP 163/116; TEMP 98.6
[2023-08-30] MEDS: THIAMINE HCL 100 MG TABLET (FP) PO SCH (22:26)
[2023-08-30] MEDS: MELATONIN 5 MG TABLETS PO SCH (22:26)
[2023-08-30] MEDS: hydrOXYzine PAMOATE 25 MG CAPSULE (FP) PO PRN (22:29)
[2023-08-31] MEDS ORDERED: chlordiazePOXIDE HCL 10 MG CAPSULE PO SCH (05:00)
[2023-08-31] MEDS: PRENATAL VITAMINS W/ FOLIC ACID TABLET (FP) PO SCH (10:22)
[2023-08-31] MEDS: NICOTINE 14 MG/24 HOURS TOPICAL PATCH TD SCH (10:22)
[2023-08-31] MEDS ORDERED: POTASSIUM CHLORIDE ORAL LIQUID 20 MEQ/15 ML PO SCH (12:45)
[2023-09-01] MEDS ORDERED: chlordiazePOXIDE HCL 10 MG CAPSULE PO ONE (05:00)
== END 2023-08-31 11:30 | disposition home or self-care (01) | DRG 774 ==
LOC: YASAS 11:52 → Y3N 13:34
PROVIDERS: ADMIT Allergy & Immunology; ATTEND Surgery
PROC: HZ2ZZZZ Detoxification Services for Substance Abuse Treatment (ICD-10-PCS; principal; 2023-08-27)
DX: F10.230 Alcohol dependence with withdrawal, uncomplicated (principal); F14.20 Cocaine dependence, uncomplicated; F17.210 Nicotine dependence, cigarettes, uncomplicated; F19.24 Other psychoactive substance dependence with psychoactive substance-induced mood disorder; F20.9 Schizophrenia, unspecified; F41.9 Anxiety disorder, unspecified; F32.A Depression, unspecified; E87.6 Hypokalemia
CPT/HCPCS: 36415; 80053; 80307; 85027; 86780; 87635; 87811

== ENCOUNTER 2023-11-11 09:04 | Inpatient (IN) | payer OTHER ==
[2023-11-11 09:22] VITALS: BMI 25.8
[2023-11-11] MEDS ORDERED: MAGNESIUM HYDROX 2400MG/30ML ORAL SUSPENSION 30 ML CUP PO PRN (09:53)
[2023-11-11] MEDS ORDERED: BENZOCAINE/MENTHOL (CHLORASEPTIC ) LOZENGE MM PRN (09:53)
[2023-11-11] MEDS ORDERED: IBUPROFEN 400 MG TABLET (FP) PO PRN (09:53)
[2023-11-11] MEDS ORDERED: NALOXONE HCL 0.4 MG/ML VIAL IM PRN (09:53)
[2023-11-11] MEDS ORDERED: DICYCLOMINE HCL 10 MG CAPSULE PO PRN (09:53)
[2023-11-11] MEDS ORDERED: ONDANSETRON *ODT* 4 MG TABLET SL PRN (09:53)
[2023-11-11] MEDS ORDERED: MAG HYDROX/AL HYDROX/SIMETH 30 ML UNIT-DOSE CUP PO PRN (09:53)
[2023-11-11] MEDS ORDERED: METHOCARBAMOL 500 MG TABLET PO PRN (09:53)
[2023-11-11] MEDS ORDERED: guaiFENesin 600 MG TABLET.ER (FP) PO PRN (09:53)
[2023-11-11] MEDS ORDERED: hydrOXYzine PAMOATE 25 MG CAPSULE (FP) PO PRN (09:53)
[2023-11-11] MEDS ORDERED: ACETAMINOPHEN 325 MG TABLET (FP) PO PRN (09:53)
[2023-11-11] MEDS ORDERED: NALOXONE HCL (KLOXXADO) 8 MG SPRAY NS PRN (09:53)
[2023-11-11] MEDS ORDERED: POLYETHYLENE GLYCOL (HEALTHYLAX) 3350 17 GM PACKET PO PRN (09:53)
[2023-11-11] MEDS ORDERED: chlordiazePOXIDE HCL 25 MG CAPSULE PO PRN (09:53)
[2023-11-11] MEDS ORDERED: IBUPROFEN 600 MG TABLET (FP) PO PRN (09:53)
[2023-11-11] MEDS ORDERED: BISMUTH SUBSALICYLATE 262 MG/15 ML BTL PO PRN (09:53)
[2023-11-11] MEDS ORDERED: BENZONATATE 200 MG CAPSULE PO PRN (09:53)
[2023-11-11] MEDS ORDERED: LOPERAMIDE HCL 2 MG CAPSULE PO PRN (09:53)
[2023-11-11] MEDS ORDERED: PRENATAL VITAMINS W/ FOLIC ACID TABLET (FP) PO ONE (10:53)
[2023-11-11] MEDS: PRENATAL VITAMINS W/ FOLIC ACID TABLET (FP) PO SCH (10:55)
[2023-11-11] MEDS: chlordiazePOXIDE HCL 25 MG CAPSULE PO SCH ×3 (11:12→22:34)
[2023-11-11 13:48] LABS: HEMATOCRIT 40.1 % (35.4-49); HEMOGLOBIN 13.4 GM/dL (11.7-16.9); MCH 31.3 pg (25.7-33.7); MCHC 33.4 g/dl (32.0-35.9); MEAN CELL VOLUME 93.6 fl (80-96); MEAN PLT VOLUME 9.3 fl (7.5-11.1); PLATELET COUNT 292 10^3/uL (134-434); RBC 4.29 M/mm3 (4.00-5.60); RDW 14.1 % (11.9-15.9); WHITE BLOOD COUNT 5.4 K/mm3 (4.0-10.0)
[2023-11-11 13:57] LABS: POTASSIUM 3.1 mmol/L (3.5-5.1)
[2023-11-11 14:08] LABS: CALCIUM 8.6 mg/dL (8.5-10.1)
[2023-11-11 14:11] LABS: CREATININE 0.9 mg/dL (0.55-1.3)
[2023-11-11 14:12] LABS: BILIRUBIN,TOTAL 0.2 mg/dL (0.2-1); TOT PROT 7.5 g/dl (6.4-8.2)
[2023-11-11 15:10] LABS: ALBUMIN 3.4 g/dl (3.4-5.0); BLOOD UREA NITROGEN 9.2 mg/dL (7-18)
[2023-11-11] MEDS: POTASSIUM CHLORIDE TABS 20 MEQ TABLET.ER (FP) PO SCH ×2 (17:45→22:35)
[2023-11-11] MEDS: MELATONIN 5 MG TABLETS PO SCH (22:34)
[2023-11-11] MEDS: THIAMINE HCL 100 MG TABLET (FP) PO SCH (22:35)
[2023-11-12] MEDS: chlordiazePOXIDE HCL 25 MG CAPSULE PO SCH ×4 (05:33→22:04)
[2023-11-12] MEDS: PRENATAL VITAMINS W/ FOLIC ACID TABLET (FP) PO SCH (10:39)
[2023-11-12] MEDS: MELATONIN 5 MG TABLETS PO SCH (22:04)
[2023-11-12] MEDS: THIAMINE HCL 100 MG TABLET (FP) PO SCH (22:04)
[2023-11-13] MEDS: chlordiazePOXIDE HCL 25 MG CAPSULE PO SCH ×2 (05:47→10:40)
[2023-11-13 08:57] VITALS: BP 133/67; PULSE 80; RESP 19; TEMP 97.9
[2023-11-13] MEDS: PRENATAL VITAMINS W/ FOLIC ACID TABLET (FP) PO SCH (10:40)
[2023-11-14] MEDS ORDERED: chlordiazePOXIDE HCL 10 MG CAPSULE PO PRN
[2023-11-14] MEDS ORDERED: chlordiazePOXIDE HCL 10 MG CAPSULE PO SCH (05:00)
[2023-11-15] MEDS ORDERED: chlordiazePOXIDE HCL 10 MG CAPSULE PO SCH (05:00)
[2023-11-16] MEDS ORDERED: chlordiazePOXIDE HCL 10 MG CAPSULE PO ONE (05:00)
== END 2023-11-13 12:25 | disposition left against medical advice (07) | DRG 770 ==
LOC: YASAS 09:04 → Y3N 10:29
PROVIDERS: ADMIT Allergy & Immunology; ATTEND Surgery
PROC: HZ2ZZZZ Detoxification Services for Substance Abuse Treatment (ICD-10-PCS; principal; 2023-11-11)
DX: F10.230 Alcohol dependence with withdrawal, uncomplicated (principal); F14.20 Cocaine dependence, uncomplicated; E87.6 Hypokalemia; Z87.891 Personal history of nicotine dependence; Z59.01 Sheltered homelessness
CPT/HCPCS: 36415; 80053; 80307; 84132; 85027; 86780; 87635; 87811

== ENCOUNTER 2024-07-18 14:29 | Inpatient (IN) | payer OTHER ==
[2024-07-18 15:01] VITALS: BMI 27.3
[2024-07-18] MEDS ORDERED: IBUPROFEN 600 MG TABLET (FP) PO PRN (17:48)
[2024-07-18] MEDS ORDERED: BENZONATATE 200 MG CAPSULE PO PRN (17:48)
[2024-07-18] MEDS ORDERED: ONDANSETRON *ODT* 4 MG TABLET SL PRN (17:48)
[2024-07-18] MEDS ORDERED: ACETAMINOPHEN 325 MG TABLET (FP) PO PRN (17:48)
[2024-07-18] MEDS ORDERED: BENZOCAINE/MENTHOL (CHLORASEPTIC ) LOZENGE MM PRN (17:48)
[2024-07-18] MEDS ORDERED: POLYETHYLENE GLYCOL (HEALTHYLAX) 3350 17 GM PACKET PO PRN (17:48)
[2024-07-18] MEDS ORDERED: guaiFENesin 600 MG TABLET.ER (FP) PO PRN (17:48)
[2024-07-18] MEDS ORDERED: DICYCLOMINE HCL 10 MG CAPSULE PO PRN (17:48)
[2024-07-18] MEDS ORDERED: MAG HYDROX/AL HYDROX/SIMETH 30 ML UNIT-DOSE CUP PO PRN (17:48)
[2024-07-18] MEDS ORDERED: MAGNESIUM HYDROX 2400MG/30ML ORAL SUSPENSION 30 ML CUP PO PRN (17:48)
[2024-07-18] MEDS ORDERED: hydrOXYzine PAMOATE 25 MG CAPSULE (FP) PO PRN (17:48)
[2024-07-18] MEDS ORDERED: LOPERAMIDE HCL 2 MG CAPSULE PO PRN (17:48)
[2024-07-18] MEDS ORDERED: IBUPROFEN 400 MG TABLET (FP) PO PRN (17:48)
[2024-07-18] MEDS: MELATONIN 5 MG TABLETS PO SCH (23:32)
[2024-07-18] MEDS: THIAMINE 100 MG TABLET PO SCH (23:32)
[2024-07-19] MEDS ORDERED: chlordiazePOXIDE HCL 25 MG CAPSULE PO PRN (08:47)
[2024-07-19] MEDS: PRENATAL VITAMINS W/ FOLIC ACID TABLET (FP) PO SCH (10:49)
[2024-07-19] MEDS: chlordiazePOXIDE HCL 25 MG CAPSULE PO SCH (11:43)
[2024-07-19] MEDS: BISMUTH SUBSALICYLATE 524 MG/30 ML PO PRN (11:45)
[2024-07-19 14:26] LABS: HEMATOCRIT 37.5 % (35.4-49); HEMOGLOBIN 12.5 GM/dL (11.7-16.9); MCH 32.2 pg (25.7-33.7); MCHC 33.3 g/dl (32.0-35.9); MEAN CELL VOLUME 96.5 fl (80-96); MEAN PLT VOLUME 10.3 fl (7.5-11.1); PLATELET COUNT 234 10^3/uL (134-434); RBC 3.89 M/mm3 (4.00-5.60); WHITE BLOOD COUNT 3.5 K/mm3 (4.0-10.0)
[2024-07-19 14:29] LABS: CHLORIDE 109 mmol/L (98-107); SODIUM 141 mmol/L (136-145)
[2024-07-19 14:33] LABS: ANION GAP 5 mmol/L (4-13); CALCIUM 8.9 mg/dL (8.5-10.1); CO2 28 mmol/L (21-32)
[2024-07-19 14:34] LABS: BLOOD UREA NITROGEN 18.7 mg/dL (7-18); GLUCOSE,RANDOM 115 mg/dL (74-106)
[2024-07-19 14:37] LABS: CREATININE 0.9 mg/dL (0.55-1.3); SGOT/AST 23 U/L (15-37); SGPT/ALT 19 U/L (13-61)
[2024-07-19 14:38] LABS: BILIRUBIN,TOTAL 0.2 mg/dL (0.2-1); TOT PROT 6.5 g/dl (6.4-8.2)
[2024-07-19 14:39] LABS: ALK PHOS 115 U/L (45-117)
[2024-07-20 06:33] VITALS: PULSE 74; RESP 16
[2024-07-20 10:00] VITALS: BP 131/72; TEMP 97.7
[2024-07-20] MEDS: METHOCARBAMOL 500 MG TABLET PO PRN (10:59)
[2024-07-21] MEDS ORDERED: chlordiazePOXIDE HCL 25 MG CAPSULE PO SCH (05:00)
[2024-07-22] MEDS ORDERED: chlordiazePOXIDE HCL 10 MG CAPSULE PO PRN
[2024-07-22] MEDS ORDERED: chlordiazePOXIDE HCL 10 MG CAPSULE PO SCH (05:00)
[2024-07-23] MEDS ORDERED: chlordiazePOXIDE HCL 10 MG CAPSULE PO SCH (05:00)
[2024-07-24] MEDS ORDERED: chlordiazePOXIDE HCL 10 MG CAPSULE PO ONE (05:00)
== END 2024-07-20 13:26 | disposition left against medical advice (07) | DRG 770 ==
LOC: YASAS 14:29 → Y3N 19:35
PROVIDERS: ADMIT Allergy & Immunology; ATTEND Allergy & Immunology
PROC: HZ2ZZZZ Detoxification Services for Substance Abuse Treatment (ICD-10-PCS; principal; 2024-07-18)
DX: F10.230 Alcohol dependence with withdrawal, uncomplicated (principal); F14.20 Cocaine dependence, uncomplicated; F17.210 Nicotine dependence, cigarettes, uncomplicated; F20.9 Schizophrenia, unspecified; F41.9 Anxiety disorder, unspecified; Z59.01 Sheltered homelessness
CPT/HCPCS: 36415; 80053; 80305; 80307; 85027; 86780; 93005; 93010

== ENCOUNTER 2024-09-07 11:04 | Inpatient (IN) | payer OTHER ==
[2024-09-07 11:20] VITALS: BMI 26.8
[2024-09-07] MEDS ORDERED: IBUPROFEN 400 MG TABLET (FP) PO PRN (11:46)
[2024-09-07] MEDS ORDERED: LOPERAMIDE HCL 2 MG CAPSULE PO PRN (11:46)
[2024-09-07] MEDS ORDERED: MAGNESIUM HYDROX 2400MG/30ML ORAL SUSPENSION 30 ML CUP PO PRN (11:46)
[2024-09-07] MEDS ORDERED: IBUPROFEN 600 MG TABLET (FP) PO PRN (11:46)
[2024-09-07] MEDS ORDERED: NICOTINE POLACRILEX 2 MG GUM BUC PRN (11:46)
[2024-09-07] MEDS ORDERED: NALOXONE (NYS OPIOID OVERDOSE PROGRAM) 4 MG/0.1 ML SPRAY NS PRN (11:46)
[2024-09-07] MEDS ORDERED: BENZOCAINE/MENTHOL (CHLORASEPTIC ) LOZENGE MM PRN (11:46)
[2024-09-07] MEDS ORDERED: NICOTINE POLACRILEX 2 MG LOZENGE BC PRN (11:46)
[2024-09-07] MEDS ORDERED: POLYETHYLENE GLYCOL (HEALTHYLAX) 3350 17 GM PACKET PO PRN (11:46)
[2024-09-07] MEDS ORDERED: ACETAMINOPHEN 325 MG TABLET (FP) PO PRN (11:46)
[2024-09-07] MEDS ORDERED: guaiFENesin 600 MG TABLET.ER (FP) PO PRN (11:46)
[2024-09-07] MEDS ORDERED: BENZONATATE 200 MG CAPSULE PO PRN (11:46)
[2024-09-07] MEDS: MAG HYDROX/AL HYDROX/SIMETH 30 ML UNIT-DOSE CUP PO PRN (16:46)
[2024-09-07] MEDS: TUBERCULIN PPD 5 TU/0.1ML VIAL ID ONE (17:53)
[2024-09-07] MEDS: BISMUTH SUBSALICYLATE 262 MG/15 ML BTL PO PRN (18:12)
[2024-09-07] MEDS: MELATONIN 5 MG TABLETS PO SCH (23:21)
[2024-09-07] MEDS: THIAMINE 100 MG TABLET PO SCH (23:22)
[2024-09-08] MEDS: PRENATAL VITAMINS W/ FOLIC ACID TABLET (FP) PO SCH (09:46)
[2024-09-08] MEDS: hydrOXYzine PAMOATE 25 MG CAPSULE (FP) PO PRN (09:47)
[2024-09-08 15:07] LABS: HEMATOCRIT 37.5 % (35.4-49); HEMOGLOBIN 12.7 GM/dL (11.7-16.9); MCH 32.3 pg (25.7-33.7); MCHC 33.9 g/dl (32.0-35.9); MEAN CELL VOLUME 95.2 fl (80-96); MEAN PLT VOLUME 9.9 fl (7.5-11.1); PLATELET COUNT 218 10^3/uL (134-434); RBC 3.94 M/mm3 (4.00-5.60); RDW 14.7 % (11.9-15.9); WHITE BLOOD COUNT 3.7 K/mm3 (4.0-10.0)
[2024-09-08 15:19] LABS: CHLORIDE 106 mmol/L (98-107); POTASSIUM 3.5 mmol/L (3.5-5.1); SODIUM 142 mmol/L (136-145)
[2024-09-08 15:25] LABS: ALBUMIN 3.4 g/dl (3.4-5.0); BLOOD UREA NITROGEN 22.9 mg/dL (7-18)
[2024-09-08 15:27] LABS: SGOT/AST 27 U/L (15-37); SGPT/ALT 25 U/L (13-61)
[2024-09-08 15:28] LABS: ANION GAP 6 mmol/L (4-13); BILIRUBIN,TOTAL 0.2 mg/dL (0.2-1); CALCIUM 9.2 mg/dL (8.5-10.1); CO2 31 mmol/L (21-32); GLUCOSE,RANDOM 128 mg/dL (74-106); TOT PROT 6.8 g/dl (6.4-8.2)
[2024-09-08 15:30] LABS: ALK PHOS 113 U/L (45-117)
[2024-09-09 06:44] VITALS: BP 142/76; PULSE 73; RESP 16; TEMP 97.7
== END 2024-09-09 12:52 | disposition left against medical advice (07) | DRG 770 ==
LOC: YASAS 11:04 → Y3NR 12:10 → Y3W 09-08 10:13
PROVIDERS: ADMIT Psychiatry & Neurology Pain Medicine; ATTEND Psychiatry & Neurology Pain Medicine
PROC: HZ42ZZZ Group Counseling for Substance Abuse Treatment, Cognitive-Behavioral (ICD-10-PCS; principal; 2024-09-07)
DX: F10.20 Alcohol dependence, uncomplicated (principal); F14.20 Cocaine dependence, uncomplicated; F20.9 Schizophrenia, unspecified; F41.9 Anxiety disorder, unspecified
CPT/HCPCS: 36415; 80053; 80305; 80307; 85027; 87811

== ENCOUNTER 2025-01-25 09:17 | Inpatient (IN) | payer OTHER ==
[2025-01-25 09:47] VITALS: BMI 29.5
[2025-01-25] MEDS ORDERED: IBUPROFEN 400 MG TABLET (FP) PO PRN (10:43)
[2025-01-25] MEDS ORDERED: guaiFENesin 600 MG TABLET.ER (FP) PO PRN (10:43)
[2025-01-25] MEDS ORDERED: ONDANSETRON *ODT* 4 MG TABLET SL PRN (10:43)
[2025-01-25] MEDS ORDERED: NALOXONE (NARCAN) HCL 4 MG/0.1 ML SPRAY NS PRN (10:43)
[2025-01-25] MEDS ORDERED: METHOCARBAMOL 500 MG TABLET PO PRN (10:43)
[2025-01-25] MEDS ORDERED: BISMUTH SUBSALICYLATE 262 MG/15 ML BTL PO PRN (10:43)
[2025-01-25] MEDS ORDERED: DICYCLOMINE HCL 10 MG CAPSULE PO PRN (10:43)
[2025-01-25] MEDS ORDERED: POLYETHYLENE GLYCOL (HEALTHYLAX) 3350 17 GM PACKET PO PRN (10:43)
[2025-01-25] MEDS ORDERED: BENZONATATE 200 MG CAPSULE PO PRN (10:43)
[2025-01-25] MEDS ORDERED: MAGNESIUM HYDROX 2400MG/30ML ORAL SUSPENSION 30 ML CUP PO PRN (10:43)
[2025-01-25] MEDS ORDERED: NICOTINE POLACRILEX 2 MG GUM BUC PRN (10:43)
[2025-01-25] MEDS ORDERED: ACETAMINOPHEN 325 MG TABLET (FP) PO PRN (10:43)
[2025-01-25] MEDS ORDERED: hydrOXYzine PAMOATE 25 MG CAPSULE (FP) PO PRN (10:43)
[2025-01-25] MEDS ORDERED: MAG HYDROX/AL HYDROX/SIMETH 30 ML UNIT-DOSE CUP PO PRN (10:43)
[2025-01-25] MEDS ORDERED: LOPERAMIDE HCL 2 MG CAPSULE PO PRN (10:43)
[2025-01-25] MEDS ORDERED: BENZOCAINE/MENTHOL (CHLORASEPTIC ) LOZENGE MM PRN (10:43)
[2025-01-25] MEDS ORDERED: IBUPROFEN 600 MG TABLET (FP) PO PRN (10:43)
[2025-01-25] MEDS ORDERED: diazePAM 5 MG TABLET ONE (11:35)
[2025-01-25] MEDS: diazePAM 5 MG TABLET PO SCH (11:37)
[2025-01-25] MEDS: NALTREXONE HCL 50 MG TABLET PO ONE (15:40)
[2025-01-25] MEDS: MIRTAZAPINE 15 MG TABLET (FP) PO SCH (22:38)
[2025-01-25] MEDS: MELATONIN 5 MG TABLETS PO SCH (22:38)
[2025-01-25] MEDS: THIAMINE 100 MG TABLET PO SCH (22:38)
[2025-01-26 11:27] LABS: HEMATOCRIT 35.4 % (40.1-51.0); HEMOGLOBIN 11.6 g/dL (13.7-17.5); MCHC 32.8 g/dl (32.3-36.5); MEAN CELL VOLUME 93.9 fl (79.0-92.2); MEAN PLT VOLUME 11.4 fl (9.4-12.4); PLATELET COUNT # 273 x10^3/uL (163-337); RDW 13.6 % (12.2-16.1)
[2025-01-26 11:28] LABS: CHLORIDE 100 mmol/L (98-107); POTASSIUM 2.9 mmol/L (3.5-5.1); SODIUM 137 mmol/L (136-145)
[2025-01-26 11:32] LABS: BLOOD UREA NITROGEN 15.1 mg/dL (7-18); CALCIUM 8.8 mg/dL (8.5-10.1)
[2025-01-26 11:33] LABS: ALBUMIN 3.9 g/dl (3.4-5.0); ANION GAP 12 mmol/L (4-13); CO2 25 mmol/L (21-32); GLUCOSE,RANDOM 135 mg/dL (74-106)
[2025-01-26 11:35] LABS: CREATININE 1.1 mg/dL (0.55-1.3); SGOT/AST 30 U/L (15-37); SGPT/ALT 22 U/L (13-61)
[2025-01-26 11:37] LABS: BILIRUBIN,TOTAL 0.4 mg/dL (0.2-1); TOT PROT 8.2 g/dl (6.4-8.2)
[2025-01-26 11:38] LABS: ALK PHOS 104 U/L (45-117)
[2025-01-26] MEDS ORDERED: POTASSIUM CHLORIDE TABS 10 MEQ TABLET.ER (FP) PO SCH (11:45)
[2025-01-26] MEDS: PRENATAL VITAMINS W/ FOLIC ACID TABLET (FP) PO SCH (12:14)
[2025-01-26] MEDS: NALTREXONE HCL 50 MG TABLET PO SCH (12:14)
[2025-01-26] MEDS: POTASSIUM CHLORIDE TABS 20 MEQ TABLET.ER (FP) PO SCH (12:34)
[2025-01-26] MEDS: POTASSIUM CHLORIDE ORAL LIQUID 20 MEQ/15 ML PO ONE ×2 (12:35→13:48)
[2025-01-26] MEDS: diazePAM 5 MG TABLET PO PRN (12:35)
[2025-01-27 05:49] VITALS: BP 121/71; PULSE 84; RESP 16; TEMP 98.2
[2025-01-27] MEDS: diazePAM 5 MG TABLET PO SCH (06:23)
[2025-01-28] MEDS ORDERED: diazePAM 5 MG TABLET PO SCH (06:00)
[2025-01-29] MEDS ORDERED: diazePAM 5 MG TABLET PO ONE (06:00)
== END 2025-01-27 07:44 | disposition left against medical advice (07) | DRG 770 ==
LOC: YASAS 09:17 → Y3N 11:43
PROVIDERS: ADMIT Allergy & Immunology; ATTEND Allergy & Immunology
PROC: HZ2ZZZZ Detoxification Services for Substance Abuse Treatment (ICD-10-PCS; principal; 2025-01-25)
DX: F10.230 Alcohol dependence with withdrawal, uncomplicated (principal); F14.20 Cocaine dependence, uncomplicated; F17.210 Nicotine dependence, cigarettes, uncomplicated; F41.9 Anxiety disorder, unspecified; F32.A Depression, unspecified; E87.6 Hypokalemia; G47.00 Insomnia, unspecified
CPT/HCPCS: 36415; 80053; 80305; 80307; 85027; 86780; 93005; 93010